=== PATIENT | female | born 1995 | race American Indian/Alaskan Native ===

== ENCOUNTER 2021-02-01 23:50 | Emergency (ER) | payer OTHER ==
--- NOTE | 2021-02-02 00:15 | Emergency Department Report ---
ED General Adult HPI - General Chief complaint: Chest Pain Stated complaint: CHEST PAINS Time Seen by Provider: 02/02/21 00:05 Source: patient Mode of arrival: Ambulatory Limitations: No Limitations - History of Present Illness Initial comments: Patient is a 25-year-old female who presents for chest pain intermittent fever for the past week. Patient states pain of 5/10 radiates to the lower back pain is exacerbated by movement. pt does endorse fever, and moderate, Cough, there is no wheezing no stridor. No history of asthma or bronchitis. Patient is not Covid vaccinated. - Related Data Previous Rx's Medication Instructions Recorded Last Taken Type Albuterol Mdi (or & Nicu Only) 2 puff IH QID PRN #8.5 gram 02/02/21 Unknown Rx [ProAir HFA Inhaler] Amoxicillin/Potassium Clav 1 each PO BID 7 Days #14 tablet 02/02/21 Unknown Rx [Augmentin 875-125 Tablet] Azithromycin 500 mg PO DAILY 5 Days #5 tablet 02/02/21 Unknown Rx dexAMETHasone [Decadron] 4 mg PO BID 5 Days #10 tablet 02/02/21 Unknown Rx Allergies Allergy/AdvReac Type Severity Reaction Status Date / Time No Known Allergies Allergy Unverified 02/01/21 23:54 ED Review of Systems ROS: Stated complaint: CHEST PAINS Other details as noted in HPI Constitutional: chills, fever, malaise Eyes: denies: eye pain, eye discharge, vision change ENT: congestion Respiratory: cough, SOB with exertion. denies: shortness of breath, wheezing Cardiovascular: chest pain. denies: palpitations Endocrine: no symptoms reported Gastrointestinal: denies: abdominal pain, nausea, vomiting, diarrhea Genitourinary: denies: urgency, dysuria, discharge Musculoskeletal: denies: back pain, joint swelling, arthralgia Skin: denies: rash, lesions Neurological: denies: headache, weakness, paresthesias Psychiatric: denies: anxiety, depression Hematological/Lymphatic: denies: easy bleeding, easy bruising ED Past Medical Hx - Past Medical History Previous Medical History?: Yes Additional medical history: bronchitis - Surgical History Past Surgical History?: No - Medications Home Medications: Home Medications Medication Instructions Recorded Confirmed Last Taken Type Albuterol Mdi (or & Nicu Only) 2 puff IH QID PRN #8.5 gram 02/02/21 Unknown Rx [ProAir HFA Inhaler] Amoxicillin/Potassium Clav 1 each PO BID 7 Days #14 tablet 02/02/21 Unknown Rx [Augmentin 875-125 Tablet] Azithromycin 500 mg PO DAILY 5 Days #5 tablet 02/02/21 Unknown Rx dexAMETHasone [Decadron] 4 mg PO BID 5 Days #10 tablet 02/02/21 Unknown Rx ED Physical Exam - General Limitations: No Limitations General appearance: alert, in no apparent distress - Head Head exam: Present: atraumatic, normocephalic - Eye Eye exam: Present: normal appearance, EOMI Pupils: Present: normal accommodation - ENT ENT exam: Present: normal orophraynx, mucous membranes moist, TM's normal bilaterally, normal external ear exam - Neck Neck exam: Present: normal inspection, full ROM. Absent: tenderness, l ymphadenopathy - Respiratory Respiratory exam: Present: chest wall tenderness (anterior chest wall pain to deep palpation). Absent: respiratory distress, wheezes, rales, rhonchi, stridor, decreased breath sounds - Cardiovascular Cardiovascular Exam: Present: regular rate, normal rhythm, normal heart sounds. Absent: systolic murmur, diastolic murmur, rubs, gallop - GI/Abdominal GI/Abdominal exam: Present: soft, normal bowel sounds. Absent: distended, tenderness, guarding, rebound, rigid, bruit, hernia - Rectal Rectal exam: Present: deferred - Extremities Exam Extremities exam: Present: normal inspection, full ROM, normal capillary refill - Back Exam Back exam: Present: normal inspection, full ROM. Absent: CVA tenderness (R), CVA tenderness (L) - Neurological Exam Neurological exam: Present: alert, oriented X3, CN II-XII intact, normal gait - Psychiatric Psychiatric exam: Present: normal affect, normal mood - Skin Skin exam: Present: warm, dry, intact, normal color. Absent: rash ED Course Vital Signs 02/01/21 23:55 Temperature 101.1 F H Pulse Rate 138 H Respiratory 18 Rate Blood Pressure 129/86 O2 Sat by Pulse 98 Oximetry ED Medical Decision Making - Lab Data Result diagrams: 02/02/21 00:38 02/02/21 00:38 Labs 02/02/21 02/02/21 02/02/21 00:38 00:38 00:38 WBC 10.5 RBC 3.43 L Hgb 10.2 Hct 30.1 L MCV 88 MCH 30 MCHC 34 RDW 13.9 Plt Count 394 Lymph % (Auto) 13.7 Garden % (Auto) 12.5 H Eos % (Auto) 1.2 Baso % (Auto) 0.7 Lymph # (Auto) 1.4 Garden # (Auto) 1.3 H Eos # (Auto) 0.1 Baso # (Auto) 0.1 Seg Neutrophils % 71.9 H Seg Neutrophils # 7.6 Sodium 138 Potassium 3.1 L Chloride 98.3 Carbon Dioxide 26 Anion Gap 17 BUN 8 Creatinine 0.7 Estimated GFR > 60 BUN/Creatinine Ratio 11 Glucose 88 Lactic Acid 0.90 Calcium 7.9 L Total Bilirubin 0.20 AST 15 ALT 18 Alkaline Phosphatase 65 Troponin T < 0.010 Total Protein 7.5 Albumin 3.0 L Albumin/Globulin Ratio 0.7 - EKG Data EKG shows normal: sinus rhythm, axis, intervals, ST-T waves Rate: tachycardia - EKG Data Interpretation: other (Left atrial enlargement , No ST Elevated ND, interp by ed attending) - Radiology Data Radiology results: report reviewed, image reviewed [facility] Physician: RASHEEDA ELIZABETH NP Date of Service: 02/02/21 Procedure(s): XR chest routine 2V Accession Number(s): [id number] cc: RASHEEDA ELIZABETH NP Fluoro Time In Minutes: CHEST 2 VIEWS INDICATION / CLINICAL INFORMATION: chest pain. FINDINGS: SUPPORT DEVICES: None. HEART / MEDIASTINUM: No significant abnormality. LUNGS / PLEURA: Prominent multifocal airspace pneumonia throughout the left lung. The right lung is grossly clear. No pleural effusion. Signer Name: Ty Perez MD Signed: 02/02/2021 12:40 AM Workstation Name: [id number] - Medical Decision Making Chest x-ray left upper and lower lobe pneumonia plan treat for same. As are improved medications given in ED. Patient will be DC'd to home with prescriptions. There is no shortness of breath at this time patient is amatory and unit from room to bathroom and back without increased shortness of breath there is no wheezing no stridor. Patient will quarantine as precaution for PUI. We will follow-up with primary care doctor in 2 to 3 days will call for appointment. Patient verbalized agreement and understanding with discharge plan will be DC'd home in stable condition at this time. Critical care attestation.: If time is entered above; I have spent that time in minutes in the direct care of this critically ill patient, excluding procedure time. ED Disposition Clinical Impression: CAP (community acquired pneumonia) Qualifiers: Laterality: left Lung location: unspecified part of lung Qualified Code(s): J18.9 - Pneumonia, unspecified organism Disposition: HOME / SELF CARE / HOMELESS Is pt being admited?: No Does the pt Need Aspirin: No Condition: Stable Instructions: Bacterial Pneumonia (ED), Community-Acquired Pneumonia, Adult, [id number] Additional Instructions: Take medications as directed, quarantine as directed for 7 to 10 days, follow-up with your primary care doctor in 2 to 3 days. Call them to set up appointment a nd advised that you are PUI. Return to emergency should symptoms worsen. Prescriptions: Amoxicillin/Potassium Clav [Augmentin 875-125 Tablet] 1 each PO BID 7 Days #14 tablet Azithromycin 500 mg PO DAILY 5 Days #5 tablet dexAMETHasone [Decadron] 4 mg PO BID 5 Days #10 tablet Albuterol Mdi (or & Nicu Only) [ProAir HFA Inhaler] 2 puff IH QID PRN #8.5 gram PRN Reason: Shortness Of Breath Referrals: KARAN PACHECO MD [Staff Physician] - 3-5 Days Forms: Work/School Release Form(ED) Time of Disposition: 02:50
[2021-02-02] MEDS ORDERED: SODIUM CHLORIDE 0.9% 1000 ML 1,000 ML IV ONE (00:18)
--- NOTE | 2021-02-02 00:44 | XRay Report ---
CHEST 2 VIEWS INDICATION / CLINICAL INFORMATION: chest pain. FINDINGS: SUPPORT DEVICES: None. HEART / MEDIASTINUM: No significant abnormality. LUNGS / PLEURA: Prominent multifocal airspace pneumonia throughout the left lung. The right lung is g rossly clear. No pleural effusion. Signer Name: Ty Perez MD Signed: 02/02/2021 12:40 AM Workstation Name: [id number]
[2021-02-02] MEDS ORDERED: cefTRIAXone/NS 2 GM/100 ML 2 GM/100 ML BAG IV ONE (00:58)
[2021-02-02] MEDS ORDERED: dexAMETHasone 20 MG/5 ML VIAL IV ONE (01:05)
[2021-02-02 01:10] LABS: Basophils # (Auto) 0.1 K/mm3 (0.0-0.1); Basophils % (Auto) 0.7 % (0.0-1.8); Eosinophils # (Auto) 0.1 K/mm3 (0.0-0.4); Eosinophils % (Auto) 1.2 % (0.0-4.3); Hematocrit 30.1 % (30.3-42.9); Hemoglobin 10.2 gm/dl (10.1-14.3); Lymphocytes # (Auto) 1.4 K/mm3 (1.2-5.4); Lymphocytes % (Auto) 13.7 % (13.4-35.0); Mean Corpuscular HGB Conc 34 % (30-34); Mean Corpuscular Volume 88 fl (79-97); Monocytes # (Auto) 1.3 K/mm3 (0.0-0.8); Monocytes % (Auto) 12.5 % (0.0-7.3); Platelet Count 394 K/mm3 (140-440); Red Blood Count 3.43 M/mm3 (3.65-5.03); Red Cell Distribution Width 13.9 % (13.2-15.2)
[2021-02-02 01:21] LABS: Alanine Aminotransferase 18 units/L (7-56); Blood Urea Nitrogen 8 mg/dL (7-17); Calcium 7.9 mg/dL (8.4-10.2); Hemolysis Index 3
[2021-02-02 01:29] LABS: BUN/Creatinine Ratio 11
[2021-02-02 03:26] VITALS: BP 123/80
--- NOTE | 2021-02-02 11:48 | Electrocardiograph Report ---
[facility] Test Date: 2021-02-02 Test Time: 00:01:34 Pat Name: MATTHEW VELASQUEZ Department: Room: Gender: F Manager Paid: MALICK : 1995 Requested By: TEE PEARL Order Number: [id number] Reading MD: Edwar Lim Measurements Intervals [place] Rate: 128 P: 79 KS: 119 QRS: 81 QRSD: 83 T: 42 QT: 331 QTc: 484 Interpretive Statements Sinus tachycardia Left atrial enlargement No previous ECG available for comparison Electronically Signed On 02-02-2021 11:48:29 EDT by Edwar Lim
== END 2021-02-02 03:22 | disposition home or self-care (01) ==
LOC: ED 23:50
DX: J18.8 Other pneumonia, unspecified organism (principal)
CPT/HCPCS: 36415; 71046; 80053; 82140; 84484; 85025; 87040; 93005; 96365; 96375; 99284; J0696; J1100; J7030

== ENCOUNTER 2021-02-15 15:49 | Inpatient (IN) | payer OTHER ==
--- NOTE | 2021-02-15 16:27 | Emergency Department Report ---
ED General Adult HPI - General Chief complaint: Upper Respiratory Infection Stated complaint: FLU SYMPTOMS Time Seen by Provider: 02/15/21 16:08 Source: patient Mode of arrival: Ambulatory Limitations: No Limitations - History of Present Illness Initial comments: Patient is a 25-year-old female presents emergency room complaints of a cough that began approximately 2 to 3 weeks ago. She has associated chest pain, shortness of breath, fever. She states her chest pain is exacerbated by coughing. She denies any pleuritic pain, vomiting, diarrhea, hemoptysis, leg swelling, calf pain. pt was seen in the ED on 02/02/2021 and was diagnosed with left sided pneumonia and given prescription for medication including augmentin, azithromycin, and dexamethasone. She states that she went back to urgent care today due to continued symptoms and was advised that she had fever and tachycardia and was referred to the emergency room. she was given ibuprofen and dexamethasone IM by urgent care today. Patient states that she had a rapid COVID-19 swab 2 to 3 weeks ago and states that it was negative. She states occasionally she does feel like her heart is racing. Past medical history of bronchitis. No allergies to medications. She is a smoker. - Related Data Home Medications Medication Instructions Recorded Confirmed Last Taken Tylenol 500 mg PO Q6H PRN 02/15/21 02/15/21 Unknown Previous Rx's Medication Instructions Recorded Last Taken Type Albuterol Mdi (or & Nicu Only) 2 puff IH QID PRN #8.5 gram 02/02/21 Unknown Rx [ProAir HFA Inhaler] Allergies Allergy/AdvReac Type Severity Reaction Status Date / Time No Known Allergies Allergy Verified 02/15/21 18:22 ED Review of Systems ROS: Stated complaint: FLU SYMPTOMS Other details as noted in HPI Comment: All other systems reviewed and negative ED Past Medical Hx - Past Medical History Hx Asthma: Yes Additional medical history: bronchitis - Surgical History Past Surgical History?: No - Medications Home Medications: Home Medications Medication Instructions Recorded Confirmed Last Taken Type Albuterol Mdi (or & Nicu Only) 2 puff IH QID PRN #8.5 gram 02/02/21 02/15/21 Unknown Rx [ProAir HFA Inhaler] Tylenol 500 mg PO Q6H PRN 02/15/21 02/15/21 Unknown History ED Physical Exam - General Limitations: No Limitations General appearance: alert, in no apparent distress - Head Head exam: Present: atraumatic, normocephalic - Eye Eye exam: Present: normal appearance - ENT ENT exam: Present: mucous membranes moist - Respiratory Respiratory exam: Present: normal lung sounds bilaterally. Absent: respiratory distress, wheezes, rales, rhonchi, stridor, chest wall tenderness, accessory muscle use, decreased breath sounds, prolonged expiratory - Cardiovascular Cardiovascular Exam: Present: normal rhythm, tachycardia, normal heart sounds. Absent: systolic murmur, diastolic murmur, rubs, gallop - Neurological Exam Neurological exam: Present: alert, oriented X3 - Psychiatric Psychiatric exam: Present: normal affect, normal mood - Skin Skin exam: Present: warm, dry, intact ED Course Vital Signs 02/15/21 02/15/21 02/15/21 16:00 18:17 18:20 Temperature 98.0 F 97.9 F Pulse Rate 111 H 94 H 95 H Respiratory 18 16 23 Rate Blood Pressure 133/79 Blood Pressure 115/78 [Left] O2 Sat by Pulse 99 100 Oximetry 02/15/21 02/15/21 02/15/21 18:26 19:04 19:20 Temperature 97.9 F Pulse Rate 94 H 92 H Respiratory 16 20 Rate Blood Pressure 115/78 Blood Pressure 145/92 [Left] O2 Sat by Pulse 100 100 100 Oximetry 02/15/21 02/15/21 20:00 21:00 Temperature Pulse Rate 90 85 Respiratory 22 Rate Blood Pressure 145/92 145/92 Blood Pressure [Left] O2 Sat by Pulse 100 98 Oximetry - Consultations Consultation #1: 02/15/21 19:47 attempted to admit patient to hospitalist, advised to admit to 9PM hospitalist 02/15/21 20:[address] Pacheco, lump maker regarding patient presentation results, he advised to admit to hospitalist service, he will consult on patient, he believes could be staph pneumonia, advised to order cefepime and vancomycin, he states he will likely perform bronchoscopy on 02/17/21 02/15/21 21:42 spoke to [facility] [place] with Dr. Qureshi, hospitalist, will accept and resume care of patient, will admit to hospitalist service ED Medical Decision Making - Lab Data Result diagrams: 02/15/21 16:34 02/15/21 16:34 Lab Results 02/15/21 02/15/21 02/15/21 Range/Units 16:34 16:34 16:34 WBC 8.5 (4.5-11.0) K/mm3 RBC 3.88 (3.65-5.03) M/mm3 Hgb 11.1 (10.1-14.3) gm/dl Hct 34.2 (30.3-42.9) % MCV 88 (79-97) fl MCH 29 (28-32) pg MCHC 33 (30-34) % RDW 15.5 H (13.2-15.2) % Plt Count 328 (140-440) K/mm3 Add Manual Diff Complete Total Counted 100 Seg Neutrophils % Auto Emissions Technician Seg Neuts % (Manual) 92.0 H (40.0-70.0) % Lymphocytes % (Manual) 5.0 L (13.4-35.0) % Monocytes % (Manual) 2.0 (0.0-7.3) % Eosinophils % (Manual) 1.0 (0.0-4.3) % Nucleated RBC % Not Reportable Seg Neutrophils # Man 7.8 H (1.8-7.7) K/mm3 Band Neutrophils # 0.0 K/mm3 Lymphocytes # (Manual) 0.4 L (1.2-5.4) K/mm3 Abs React Lymphs (Man) 0.0 K/mm3 Monocytes # (Manual) 0.2 (0.0-0.8) K/mm3 Eosinophils # (Manual) 0.1 (0.0-0.4) K/mm3 Basophils # (Manual) 0.0 (0.0-0.1) K/mm3 Metamyelocytes # 0.0 K/mm3 Myelocytes # 0.0 K/mm3 Promyelocytes # 0.0 K/mm3 Blast Cells # 0.0 K/mm3 WBC Morphology Not Reportable Hypersegmented Neuts Not Reportable Hyposegmented Neuts Not Reportable Hypogranular Neuts Not Reportable Smudge Cells Not Reportable Toxic Granulation Not Reportable Toxic Vacuolation Not Reportable Dohle Bodies Not Reportable Pelger-Huet Anomaly Not Reportable Edy Rods Not Reportable Platelet Estimate Consistent w auto Clumped Platelets Not Reportable Plt Clumps, EDTA Not Reportable Large Platelets Not Reportable Giant Platelets Not Reportable Platelet Satelliting Not Reportable Plt Morphology Comment Not Reportable RBC Morphology Not Reportable Dimorphic RBCs Not Reportable Polychromasia Not Reportable Hypochromasia Not Reportable Poikilocytosis Not Reportable Anisocytosis 1+ Microcytosis Not Reportable Macrocytosis Not Reportable Spherocytes Not Reportable Pappenheimer Bodies Not Reportable Sickle Cells Not Reportable Target Cells Not Reportable Tear Drop Cells Not Reportable Ovalocytes Not Reportable Helmet Cells Not Reportable [place] Bodies Not Reportable [place] Rings Not Reportable [place] Cells Not Reportable Bite Cells Not Reportable Crenated Cell Not Reportable Elliptocytes Not Reportable Acanthocytes (Spur) Not Reportable Rouleaux Not Reportable Hemoglobin C Crystals Not Reportable Schistocytes Not Reportable Malaria parasites Not Reportable Boris Bodies Not Reportable Hem Pathologist Commnt No D-Dimer 419.23 H (0-234) ng/mlDDU Sodium 137 (137-145) mmol/L Potassium 4.0 (3.6-5.0) mmol/L Chloride 101.1 (98-107) mmol/L Carbon Dioxide 25 (22-30) mmol/L Anion Gap 15 mmol/L BUN 12 (7-17) mg/dL Creatinine 0.6 (0.6-1.2) mg/dL Estimated GFR > 60 ml/min BUN/Creatinine Ratio 20 % Glucose 150 H (65-100) mg/dL Lactic Acid (0.7-2.0) mmol/L Calcium 8.7 (8.4-10.2) mg/dL Magnesium 1.40 L (1.7-2.3) mg/dL Total Bilirubin 0.20 (0.1-1.2) mg/dL AST 32 (5-40) units/L ALT 55 (7-56) units/L Alkaline Phosphatase 83 (35-129) units/L Total Creatine Kinase 147 H (30-135) units/L Troponin T 0.058 H (0.00-0.029) ng/mL NT-Pro-B Natriuret Pep 27.57 (0-450) pg/mL Total Protein 7.9 (6.3-8.2) g/dL Albumin 3.3 L (3.9-5) g/dL Albumin/Globulin Ratio 0.7 % TSH (0.270-4.200) mlU/mL HCG, Qual (Negative) 02/15/21 02/15/21 02/15/21 Range/Units 16:34 16:34 19:10 WBC (4.5-11.0) K/mm3 RBC (3.65-5.03) M/mm3 Hgb (10.1-14.3) gm/dl Hct (30.3-42.9) % MCV (79-97) fl MCH (28-32) pg MCHC (30-34) % RDW (13.2-15.2) % Plt Count (140-440) K/mm3 Add Manual Diff Total Counted Seg Neutrophils % Seg Neuts % (Manual) (40.0-70.0) % Lymphocytes % (Manual) (13.4-35.0) % Monocytes % (Manual) (0.0-7.3) % Eosinophils % (Manual) (0.0-4.3) % Nucleated RBC % Seg Neutrophils # Man (1.8-7.7) K/mm3 Band Neutrophils # K/mm3 Lymphocytes # (Manual) (1.2-5.4) K/mm3 Abs React Lymphs (Man) K/mm3 Monocytes # (Manual) (0.0-0.8) K/mm3 Eosinophils # (Manual) (0.0-0.4) K/mm3 Basophils # (Manual) (0.0-0.1) K/mm3 Metamyelocytes # K/mm3 Myelocytes # K/mm3 Promyelocytes # K/mm3 Blast Cells # K/mm3 WBC Morphology Hypersegmented Neuts Hyposegmented Neuts Hypogranular Neuts Smudge Cells Toxic Granulation Toxic Vacuolation Dohle Bodies Pelger-Huet Anomaly Edy Rods Platelet Estimate Clumped Platelets Plt Clumps, EDTA Large Platelets Giant Platelets Platelet Satelliting Plt Morphology Comment RBC Morphology Dimorphic RBCs Polychromasia Hypochromasia Poikilocytosis Anisocytosis Microcytosis Macrocytosis Spherocytes Pappenheimer Bodies Sickle Cells Target Cells Tear Drop Cells Ovalocytes Helmet Cells [place] Bodies [place] Rings [place] Cells Bite Cells Crenated Cell Elliptocytes Acanthocytes (Spur) Rouleaux Hemoglobin C Crystals Schistocytes Malaria parasites Boris Bodies Hem Pathologist Commnt D-Dimer (0-234) ng/mlDDU Sodium (137-145) mmol/L Potassium (3.6-5.0) mmol/L Chloride (98-107) mmol/L Carbon Dioxide (22-30) mmol/L Anion Gap mmol/L BUN (7-17) mg/dL Creatinine (0.6-1.2) mg/dL Estimated GFR ml/min BUN/Creatinine Ratio % Glucose (65-100) mg/dL Lactic Acid 1.20 (0.7-2.0) mmol/L Calcium (8.4-10.2) mg/dL Magnesium (1.7-2.3) mg/dL Total Bilirubin (0.1-1.2) mg/dL AST (5-40) units/L ALT (7-56) units/L Alkaline Phosphatase (35-129) units/L Total Creatine Kinase (30-135) units/L Troponin T (0.00-0.029) ng/mL NT-Pro-B Natriuret Pep (0-450) pg/mL Total Protein (6.3-8.2) g/dL Albumin (3.9-5) g/dL Albumin/Globulin Ratio % TSH 0.195 L (0.270-4.200) mlU/mL HCG, Qual Negative (Negative) 02/15/21 Range/Units 19:10 WBC (4.5-11.0) K/mm3 RBC (3.65-5.03) M/mm3 Hgb (10.1-14.3) gm/dl Hct (30.3-42.9) % MCV (79-97) fl MCH (28-32) pg MCHC (30-34) % RDW (13.2-15.2) % Plt Count (140-440) K/mm3 Add Manual Diff Total Counted Seg Neutrophils % Seg Neuts % (Manual) (40.0-70.0) % Lymphocytes % (Manual) (13.4-35.0) % Monocytes % (Manual) (0.0-7.3) % Eosinophils % (Manual) (0.0-4.3) % Nucleated RBC % Seg Neutrophils # Man (1.8-7.7) K/mm3 Band Neutrophils # K/mm3 Lymphocytes # (Manual) (1.2-5.4) K/mm3 Abs React Lymphs (Man) K/mm3 Monocytes # (Manual) (0.0-0.8) K/mm3 Eosinophils # (Manual) (0.0-0.4) K/mm3 Basophils # (Manual) (0.0-0.1) K/mm3 Metamyelocytes # K/mm3 Myelocytes # K/mm3 Promyelocytes # K/mm3 Blast Cells # K/mm3 WBC Morphology Hypersegmented Neuts Hyposegmented Neuts Hypogranular Neuts Smudge Cells Toxic Granulation Toxic Vacuolation Dohle Bodies Pelger-Huet Anomaly Edy Rods Platelet Estimate Clumped Platelets Plt Clumps, EDTA Large Platelets Giant Platelets Platelet Satelliting Plt Morphology Comment RBC Morphology Dimorphic RBCs Polychromasia Hypochromasia Poikilocytosis Anisocytosis Microcytosis Macrocytosis Spherocytes Pappenheimer Bodies Sickle Cells Target Cells Tear Drop Cells Ovalocytes Helmet Cells Ber[place] Bodies [place] Rings [place] Cells Bite Cells Crenated Cell Elliptocytes Acanthocytes (Spur) Rouleaux Hemoglobin C Crystals Schistocytes Malaria parasites Boris Bodies Hem Pathologist Commnt D-Dimer (0-234) ng/mlDDU Sodium (137-145) mmol/L Potassium (3.6-5.0) mmol/L Chloride (98-107) mmol/L Carbon Dioxide (22-30) mmol/L Anion Gap mmol/L BUN (7-17) mg/dL Creatinine (0.6-1.2) mg/dL Estimated GFR ml/min BUN/Creatinine Ratio % Glucose (65-100) mg/dL Lactic Acid (0.7-2.0) mmol/L Calcium (8.4-10.2) mg/dL Magnesium (1.7-2.3) mg/dL Total Bilirubin (0.1-1.2) mg/dL AST (5-40) units/L ALT (7-56) units/L Alkaline Phosphatase (35-129) units/L Total Creatine Kinase (30-135) units/L Troponin T < 0.010 (0.00-0.029) ng/mL NT-Pro-B Natriuret Pep (0-450) pg/mL Total Protein (6.3-8.2) g/dL Albumin (3.9-5) g/dL Albumin/Globulin Ratio % TSH (0.270-4.200) mlU/mL HCG, Qual (Negative) Vital Signs 1002/15/21 02/15/21 16:00 18:17 18:20 Temperature 98.0 F 97.9 F Pulse Rate 111 H 94 H 95 H Respiratory 18 16 23 Rate Blood Pressure 133/79 Blood Pressure 115/78 [Left] O2 Sat by Pulse 99 100 Oximetry 02/15/21 02/15/21 02/15/21 18:26 19:04 19:20 Temperature 97.9 F Pulse Rate 94 H 92 H Respiratory 16 20 Rate Blood Pressure 115/78 Blood Pressure 145/92 [Left] O2 Sat by Pulse 100 100 100 Oximetry 02/15/21 02/15/21 20:00 21:00 Temperature Pulse Rate 90 85 Respiratory 22 Rate Blood Pressure 145/92 145/92 Blood Pressure [Left] O2 Sat by Pulse 100 98 Oximetry - EKG Data EKG shows normal: sinus rhythm, axis Rate: tachycardia (100 bpm) - EKG Data 02/15/21 16:51 Prolonged QT interval 496 Nonspecific T wave inversion in V1, V2, V3 ST elevation from normal early repolarization No STEMI - Radiology Data Radiology results: report reviewed Ordering Physician: GIOVANNA CLAIRE Date of Service: 02/15/21 Procedure(s): XR chest routine 2V Accession Number(s): [id number] cc: GIOVANNA CLAIRE Fluoro Time In Minutes: CHEST 2 VIEWS INDICATION: CP, SOB. COMPARISON: 02/03/2020 FINDINGS: Support devices: None. Heart: Within normal limits. Lungs/pleura: Patchy infiltrate in the left lung has decreased by 50-75%. The right lung remains clear. No pleural effusion or pneumothorax. Additional findings: None. IMPRESSION: Improvement in the left lung pneumonia since 02/03/2020. Signer Name: Michael Mccray Jr, MD Signed: 02/15/2021 7:02 PM Workstation Name: [id number] Transcribed By: TTR Dictated By: MICHAEL MCCRAY JR, MD Electronically Authenticated By: MICHAEL MCCRAY JR, MD Signed Date/Time: 02/15/211901 DD/ 00 TD/TT: Ordering Physician: GIOVANNA CLAIRE Date of Service: 02/15/21 Procedure(s): CT angio chest Accession Number(s): [id number] cc: GIOVANNA CLAIRE CTA CHEST WITH CONTRAST INDICATION : cp, sob, cough, fever, (+) d-dimer, tachycardia. TECHNIQUE: Axial imaging performed through the chest, with contrast bolus efrain ing set to maximize opacification of the pulmonary arteries. Sagittal and coronal reformatted image s. 3-plane MIP reformatted images were obtained. All CT scans at this location are performed using CT dose reduction for ALARA by means of automated exposure control. 100 mL of intravenous contrast administered. COMPARISON: None FINDINGS: Bolus: Contrast bolus timing is adequate. PTE: No filling defect is present to suggest PTE. Mediastinum: Heart size is borderline. There is trace pericardial fluid. Borderline to mildly enlarged lymph nodes are identified at the left hilum and AP window. Lungs: Both lungs are abnormal. There is an irregular cavitating masslike lesion in the left apical region with a thick peripheral wall measuring up to 4.3 x 4.9 cm in axial plane. There is ext ensive peribronchial nodularity throughout the left upper lobe extending all the way to the lingula. There is also a smaller but similar appearing cavitating lesion in the right suprahilar region measuring 1.5 cm in diameter. No pleural effusion or pneumothorax. Bones: Degenerative changes in the spine with nothing acute. Upper abdomen: Limited imaging of the upper abdomen shows nothing acute. IMPRESSION: No evidence for pulmonary embolus. Abnormal lungs. There is an approximate 5 cm cavitary lesion at the left lung apex with extensive infiltration throughout the remainder of the left upper lobe. A smaller 1.5 cm cavitary lesion is identified in the right suprahilar region. I suspect this is an inflammatory process. Tuberculosis should be considered. Fungal infection could also be considered. Cavitating neoplasm with lymphangitic spread could also be considered but is thought less likely. Please correlate with the patient's clinical presentation. Signer Name: Michael Mccray Jr, MD Signed: 02/15/2021 7:33 PM Workstation Name: [id number] Transcribed By: TTR Dictated By: MICHAEL MCCRAY JR, MD Electronically Authenticated By: MICHAEL MCCRAY JR, MD Signed Date/Time: 02/15/211932 DD/ 28 TD/TT: - Medical Decision Making Patient is a 25-year-old female presents emergency room complaints of a cough that began approximately 2 to 3 weeks ago. She has associated chest pain, shortness of breath, fever. She states her chest pain is exacerbated by coughing. She denies any pleuritic pain, vomiting, diarrhea, hemoptysis, leg swelling, calf pain. pt was seen in the ED on 02/02/2021 and was diagnosed with left sided pneumonia and given prescription for medication including augmentin, azithromycin, and dexamethasone. She states that she went back to urgent care today due to continued symptoms and was advised that she had fever and tach ycardia and was referred to the emergency room. she was given ibuprofen and dexamethasone IM by urgent care today. Patient states that she had a rapid COVID-19 swab 2 to 3 weeks ago and states that it was negative. She states occasionally she does feel like her heart is racing. Past medical history of bronchitis. No allergies to medications. She is a smoker. Initial vitals with tachycardia which improved upon repeat. EKG with nonspecific T wave inversion V1, V2, V3, normal early repolarization, prolonged QT. Lab significant for initially elevated troponin, on repeat troponin is normal. D-dimer is elevated. Hypomagnesium, repleted with IV mag. TSH is low. Chest x-ray:Improvement in the left lung pneumonia since 02/03/2020. CT angio chest No evidence for pulmonary embolus. Abnormal lungs. There is an approximate 5 cm cavitary lesion at the left lung apex with extensive infiltration throughout the remainder of the left upper lobe. A smaller 1.5 cm cavitary lesion is identified in the right suprahilar region. I suspect this is an inflammatory process. Tuberculosis should be considered. Fungal infection could also be considered. Cavitating neoplasm with lymphangitic spread could also be considered but is thought less likely. Please correlate with the patient's clinical presentation. Discussed case with Dr. Garcia, ER attending who recommended admission.Spoke to Dr. Pacheco, lump maker regarding patient presentation results, he advised to admit to hospitalist service, he will consult on patient, he believes could be staph pneumonia, advised to order cefepime and vancomycin, he states he will likely perform bronchoscopy on 02/17/21. \ Dr. Qureshi, hospitalist will accept and resume care of patient, will admit to hospital service. discussed results with patient and she is agreeable with admission. Critical care attestation.: If time is entered above; I have spent that time in minutes in the direct care of this critically ill patient, excluding procedure time. ED Disposition Clinical Impression: Cavitary lesion of lung, Hypomagnesemia, Elevated troponin, Low TSH level Disposition: ADMITTED INPATIENT Is pt being admited?: Yes Does the pt Need Aspirin: No Condition: Fair Referrals: PRIMARY CARE, [Primary Care Provider] - 3-5 Days Time of Disposition: 21:43 Print Language: J[place]
[2021-02-15] MEDS ORDERED: SODIUM CHLORIDE 0.9% 1000 ML 1,000 ML IV ONE (16:43)
[2021-02-15 17:11] LABS: Hematocrit 34.2 % (30.3-42.9); Hemoglobin 11.1 gm/dl (10.1-14.3); Mean Corpuscular HGB Conc 33 % (30-34); Mean Corpuscular Volume 88 fl (79-97); Platelet Count 328 K/mm3 (140-440); Red Blood Count 3.88 M/mm3 (3.65-5.03); Red Cell Distribution Width 15.5 % (13.2-15.2)
[2021-02-15 17:33] LABS: Alanine Aminotransferase 55 units/L (7-56); Albumin 3.3 g/dL (3.9-5); Blood Urea Nitrogen 12 mg/dL (7-17); Calcium 8.7 mg/dL (8.4-10.2); Hemolysis Index 5
[2021-02-15 17:41] LABS: BUN/Creatinine Ratio 20
[2021-02-15] MEDS ORDERED: MAGNESIUM SULFATE 2 GM/50 ML BAG IV ONE (17:41)
[2021-02-15 18:21] LABS: Total Cells Counted 100
[2021-02-15 18:22] LABS: Anisocytosis 1+; Platelet Estimate Consistent w Auto
--- NOTE | 2021-02-15 19:06 | XRay Report ---
CHEST 2 VIEWS INDICATION: CP, SOB. COMPARISON: 02/03/2020 FINDINGS: Support devices: None. Heart: Within normal limits. Lungs/pleura: Patchy infiltrate in the left lung has decreased by 50-75%. The right lung remains rosalio r. No pleural effusion or pneumothorax. Additional findings: None. IMPRESSION: Improvement in the left lung pneumonia since 02/03/2020. Signer Name: Michael Mccray Jr, MD Signed: 02/15/2021 7:02 PM Workstation Name: [id number]
--- NOTE | 2021-02-15 19:37 | Cat Scan Report ---
CTA CHEST WITH CONTRAST INDICATION : cp, sob, cough, fever, (+) d-dimer, tachycardia. TECHNIQUE: Axial imaging performed through the chest, with contrast bolus timing set to maximize opa cification of the pulmonary arteries. Sagittal and coronal reformatted images. 3-plane MIP reformatte d images were obtained. All CT scans at this location are performed using CT dose reduction for ALAR A by means of automated exposure control. 100 mL of intravenous contrast administered. COMPARISON: None FINDINGS: Bolus: Contrast bolus timing is adequate. PTE: No filling defect is present to suggest PTE. Mediastinum: Heart size is borderline. There is trace pericardial fluid. Borderline to mildly enlarg ed lymph nodes are identified at the left hilum and AP window. Lungs: Both lungs are abnormal. There is an irregular cavitating masslike lesion in the left apical region with a thick peripheral wall measuring up to 4.3 x 4.9 cm in axial plane. There is extensive p eribronchial nodularity throughout the left upper lobe extending all the way to the lingula. There is also a smaller but similar appearing cavitating lesion in the right suprahilar region measuring 1.5 cm in diameter. No pleural effusion or pneumothorax. Bones: Degenerative changes in the spine with nothing acute. Upper abdomen: Limited imaging of the upper abdomen shows nothing acute. IMPRESSION: No evidence for pulmonary embolus. Abnormal lungs. There is an approximate 5 cm cavitary lesion at the left lung apex with extensive inf iltration throughout the remainder of the left upper lobe. A smaller 1.5 cm cavitary lesion is identi fied in the right suprahilar region. I suspect this is an inflammatory process. Tuberculosis should b e considered. Fungal infection could also be considered. Cavitating neoplasm with lymphangitic spread could also be considered but is thought less likely. Please correlate with the patient's clinical pr esentation. Signer Name: Michael Mccray Jr, MD Signed: 02/15/2021 7:33 PM Workstation Name: [id number]
[2021-02-15] MEDS ORDERED: CEFEPIME/NS 2 GM/100 ML 2 GM/100 ML BAG IV ONE (20:13)
[2021-02-15] MEDS ORDERED: VANCOMYCIN PHARMACY TO DOSE IV SCH (21:00)
[2021-02-15] MEDS ORDERED: VANCOMYCIN 1,250 MG in SODIUM CHLORIDE 0.9% 250ML 250 ML IV ONE (21:00)
[2021-02-15] MEDS ORDERED: NALOXONE 0.4 MG/1 ML INJ IV PRN (21:59)
[2021-02-15] MEDS ORDERED: ALUM-MAG HYDROXIDE-SIMETHICONE 200-200-20MG/5ML ORAL LIQD 30 ML PO PRN (21:59)
[2021-02-15] MEDS ORDERED: MORPHINE 4 MG/1 ML INJ IV PRN (21:59)
[2021-02-15] MEDS ORDERED: SENNOSIDES 8.6 MG TAB PO PRN (21:59)
[2021-02-15] MEDS ORDERED: METOCLOPRAMIDE 10 MG/2 ML INJ IV PRN (21:59)
[2021-02-15] MEDS ORDERED: ALBUTEROL 2.5 MG/3 ML NEBU IH PRN (21:59)
[2021-02-15] MEDS ORDERED: MAGNESIUM HYDROXIDE (MOM) ORAL LIQD UDC PO PRN (21:59)
[2021-02-15] MEDS ORDERED: MORPHINE 2 MG/1 ML INJ IV PRN (21:59)
[2021-02-15] MEDS ORDERED: ACETAMINOPHEN 325 MG TAB PO PRN (21:59)
[2021-02-15] MEDS ORDERED: ONDANSETRON 4 MG/2 ML INJ IV PRN (21:59)
[2021-02-15] MEDS ORDERED: oxyCODONE /ACETAMINOPHEN 5-325MG TAB PO PRN (21:59)
[2021-02-15] MEDS ORDERED: FAMOTIDINE 20 MG/2 ML INJ IV SCH (22:00)
[2021-02-15] MEDS ORDERED: HEPARIN 5,000 UNIT/1 ML VIAL SUB-Q SCH (22:00)
--- NOTE | 2021-02-15 22:07 | History and Physical Report ---
History of Present Illness Date of examination: 02/16/21 Date of admission: 02/15/21 21:43 Chief complaint: Shortness of breath Chest pain History of present illness: This is a 25-year-old female seen in ED at bedside. She presents to emergency room complaints of a cough that began approximately 2 to 3 weeks ago. She has associated chest pain, shortness of breath, fever. She states her chest pain is exacerbated and worsened by coughing. She denies any pleuritic pain, vomiting, diarrhea, hemoptysis, leg swelling, calf pain. Per ED record, patient was seen in the ED on 02/02/2021 and was diagnosed with left sided pneumonia and was given prescription for antibiotic. She states that she went back to urgent care today due to continued symptoms and was advised that she had fever and tachycardia and was referred to the emergency room. Patient admits tobacco use but she has been past medical history of bronchitis. CT a of the chest with contrast is negative for pulmonary embolus. There is a 5 cm cavitary lesion at the left lung apex with extensive infiltration throughout the remainder of the left upper lobe and a similar 1.5 cm cavitation lesion in the right suprahilar region per ED per radiologist report tuberculosis/fungal infection likely etiology. Past History Past Medical History: COPD Past Surgical History: No surgical history Social history: smoking, full code. denies: prescription drug abuse, IV drug use Family history: no significant family history Medications and Allergies Allergies Allergy/AdvReac Type Severity Reaction Status Date / Time No Known Allergies Allergy Verified 02/15/21 18:22 Home Medications Medication Instructions Recorded Confirmed Last Taken Type Albuterol Mdi (or & Nicu Only) 2 puff IH QID PRN #8.5 gram 02/02/21 02/15/21 Unknown Rx [ProAir HFA Inhaler] Tylenol 500 mg PO Q6H PRN 02/15/21 02/15/21 Unknown History Active Meds: Active Medications Acetaminophen (Acetaminophen 325 Mg Tab) 650 mg PO Q4H PRN PRN Reason: Pain MILD(1-3)/Fever >100.5/TRIVEDI Al Hydrox/Mg Hydrox/Simethicone (Alum-Mag Hydroxide-Simethicone [id number]/5ml Oral Liqd 30 Ml) 30 ml PO Q4H PRN PRN Reason: Indigestion Albuterol (Albuterol 2.5 Mg/3 Ml Nebu) 2.5 mg IH Q4HRT PRN PRN Reason: Shortness Of Breath Famotidine (Famotidine 20 Mg/2 Ml Inj) 20 mg IV BID KENDELL Famotidine (Famotidine 20 Mg/2 Ml Inj) 10 mg IV BID [facility] Heparin Sodium (Porcine) (Heparin 5,000 Unit/1 Ml Vial) 5,000 unit SUB-Q Q12HR [facility] Vancomycin HCl 1,250 mg/ (Sodium Chloride) 275 mls @ 166.667 mls/hr IV ONCE ONE Stop: 02/15/21 22:38 Last Admin: 02/15/21 21:33 Dose: 166.667 mls/hr Documented by: Vancomycin HCl (Vancomycin/Ns 1 Gm/250 Ml) 1 gm in 250 mls @ 166.667 mls/hr IV Q12H [facility] Sodium Chloride (Nacl 0.9% 1000 Ml) 1,000 mls @ 42 mls/hr IV DIRECT KENDELL Cefepime HCl (Cefepime/Ns 2 Gm/100 Ml) 2 gm in 100 mls @ 200 mls/hr IV Q12H [facility]; Protocol Magnesium Hydroxide (Magnesium Hydroxide (Mom) Oral Liqd Udc) 30 ml PO Q4H PRN PRN Reason: Constipation Metoclopramide HCl (Metoclopramide 10 Mg/2 Ml Inj) 10 mg IV Q6H PRN PRN Reason: Nausea And Vomiting Morphine Sulfate (Morphine 2 Mg/1 Ml Inj) 2 mg IV Q4H PRN PRN Reason: Pain, Moderate (4-6) Morphine Sulfate (Morphine 4 Mg/1 Ml Inj) 4 mg IV Q4H PRN PRN Reason: Pain , Severe (7-10) Naloxone HCl (Naloxone 0.4 Mg/1 Ml Inj) 0.1 mg IV Q2MIN PRN PRN Reason: Res Rate </= 8 or 02 SAT < 92% Ondansetron HCl (Ondansetron 4 Mg/2 Ml Inj) 4 mg IV Q8H PRN PRN Reason: Nausea And Vomiting Oxycodone/Acetaminophen (Oxycodone /Acetaminophen 5-325mg Tab) 1 tab PO Q6H PRN PRN Reason: Pain, Moderate (4-6) Senna (Sennosides 8.6 Mg Tab) 8.6 mg PO Q12HR PRN PRN Reason: Constipation Sodium Chloride (Sodium Chloride 0.9% 10 Ml Flush Syringe) 10 ml IV BID KENDELL Review of Systems Constitutional: fatigue, weakness Ears, nose, mouth and throat: no epistaxis, no bleeding gums Cardiovascular: chest pain, shortness of breath Respiratory: shortness of breath, congestion, wheezing Gastrointestinal: no BRBPR, no melena Rectal: no itching, no hemorrhoids Musculoskeletal: no neck pain Integumentary: no rash, no pruritis, no redness Psychiatric: anxiety Hematologic/Lymphatic: no easy bruising, no easy bleeding, no lymphadenopathy, no lymphedema Exam - Constitutional Vitals: Temp Pulse Resp BP Pulse Ox 97.9 F 85 22 145/92 98 02/15/21 19:20 02/15/21 21:00 02/15/21 21:00 02/15/21 21:00 02/15/21 21:00 General appearance: Present: mild distress, well-nourished - EENT Eyes: Present: PERRL ENT: hearing intact, clear oral mucosa - Neck Neck: Present: supple, normal ROM - Respiratory Respiratory effort: normal Respiratory: bilateral: CTA - Cardiovascular Heart Sounds: Present: S1 & S2. Absent: rub, click - Extremities Extremities: pulses symmetrical, No edema Peripheral Pulses: within normal limits - Abdominal General gastrointestinal: Present: soft, non-tender, non-distended, normal bowel sounds Female genitourinary: Present: normal - Integumentary Integumentary: Present: clear, warm, dry - Musculoskeletal Musculoskeletal: strength equal bilaterally - Psychiatric Psychiatric: appropriate mood/affect, intact judgment & insight, cooperative - Neurologic Neurologic: CNII-XII intact, moves all extremities - Allied Health Allied health notes reviewed: nursing HEART Score - HEART Score Troponin: Troponin T < 0.010 ng/mL (0.00-0.029) 02/15/21 19:10 Results - Labs CBC & Chem 7: 02/16/21 04:54 02/16/21 04:54 Labs: Abnormal lab results 02/15/21 02/15/21 02/15/21 Range/Units 16:34 16:34 16:34 RDW 15.5 H (13.2-15.2) % Seg Neuts % (Manual) 92.0 H (40.0-70.0) % Lymphocytes % (Manual) 5.0 L (13.4-35.0) % Seg Neutrophils # Man 7.8 H (1.8-7.7) K/mm3 Lymphocytes # (Manual) 0.4 L (1.2-5.4) K/mm3 D-Dimer 419.23 H (0-234) ng/mlDDU Glucose 150 H (65-100) mg/dL Magnesium 1.40 L (1.7-2.3) mg/dL Total Creatine Kinase 147 H (30-135) units/L Troponin T 0.058 H (0.00-0.029) ng/mL Albumin 3.3 L (3.9-5) g/dL TSH (0.270-4.200) mlU/mL 02/15/21 Range/Units 16:34 RDW (13.2-15.2) % Seg Neuts % (Manual) (40.0-70.0) % Lymphocytes % (Manual) (13.4-35.0) % Seg Neutrophils # Man (1.8-7.7) K/mm3 Lymphocytes # (Manual) (1.2-5.4) K/mm3 D-Dimer (0-234) ng/mlDDU Glucose (65-100) mg/dL Magnesium (1.7-2.3) mg/dL Total Creatine Kinase (30-135) units/L Troponin T (0.00-0.029) ng/mL Albumin (3.9-5) g/dL TSH 0.195 L (0.270-4.200) mlU/mL Assessment and Plan - Patient Problems (1) Cavitary lesion of lung Current Visit: Yes Status: Acute Plan to address problem: Retail Service Specialist Dr. Pacheco has been consulted Patient will be n.p.o. after midnight todayfor likely bronchoscopy tomorrow Per ED reportDr. Pacheco plans to do patient bronchoscopy tomorrow (2) Elevated troponin Current Visit: Yes Status: Acute Plan to address problem: Has resolved (3) Hypomagnesemia Current Visit: Yes Status: Acute Plan to address problem: Replaced Monitor electrolytes and replace if needed (4) CAP (community acquired pneumonia) Current Visit: No Status: Acute Plan to address problem: Started on vancomycin and cefepime Retail Service Specialist Dr Pacheco has been consulted (5) Low TSH level Current Visit: Yes Status: Acute Plan to address problem: Check T4 and T3 (6) D-dimer, elevated Current Visit: Yes Status: Acute Plan to address problem: CTA of the chest negative for pulmonary embolus (7) DVT prophylaxis Current Visit: Yes Status: Acute Plan to address problem: Subcutaneous Lovenox
[2021-02-15] MEDS: FAMOTIDINE 20 MG/2 ML INJ IV SCH (22:24)
[2021-02-16 06:19] LABS: Basophils % (Auto) 0.2 % (0.0-1.8); Hematocrit 32.8 % (30.3-42.9); Lymphocytes % (Auto) 8.6 % (13.4-35.0); Mean Corpuscular HGB Conc 31 % (30-34); Mean Corpuscular Volume 89 fl (79-97); Monocytes # (Auto) 1.3 K/mm3 (0.0-0.8); Monocytes % (Auto) 11.2 % (0.0-7.3); Platelet Count 319 K/mm3 (140-440); Red Blood Count 3.68 M/mm3 (3.65-5.03); Red Cell Distribution Width 15.8 % (13.2-15.2)
[2021-02-16 06:50] LABS: Alanine Aminotransferase 46 units/L (7-56); Albumin 3.2 g/dL (3.9-5); Blood Urea Nitrogen 8 mg/dL (7-17); Calcium 8.8 mg/dL (8.4-10.2); Hemolysis Index 3
[2021-02-16 06:51] LABS: BUN/Creatinine Ratio 16
[2021-02-16] MEDS: CEFEPIME/NS 2 GM/100 ML 2 GM/100 ML BAG IV SCH ×2 (10:19→22:42)
[2021-02-16] MEDS: FAMOTIDINE 20 MG/2 ML INJ IV SCH ×2 (10:26→22:43)
[2021-02-16] MEDS: VANCOMYCIN/NS 1 GM/250 ML 1 GM/250 ML BAG IV SCH ×2 (10:55→18:12)
--- NOTE | 2021-02-16 11:06 | Electrocardiograph Report ---
[facility] Test Date: 2021-02-15 Test Time: 16:39:51 Pat Name: MATTHEW VELASQUEZ Department: Room: A482 1 Gender: F [employer] In[employer]: ROGERS : 1995 Requested By: NELLA JAMISON Order Number: [id number] Reading MD: Salomon Santos Measurements Intervals [place] Rate: 100 P: 77 OR: 112 QRS: 84 QRSD: 93 T: 78 QT: 384 QTc: 496 Interpretive Statements Sinus tachycardia Abnrm T, consider ischemia, anterolateral lds ST elev, probable normal early repol pattern Prolonged QT interval Compared to ECG 02/02/2021 00:01:34 ST (T wave) deviation now present Prolonged QT interval now present Rate is slower,early repolarization changes noted. Electronically Signed On 02-16-2021 11:05:33 EDT by Salomon Santos
--- NOTE | 2021-02-16 11:07 | Electrocardiograph Report ---
[facility] Test Date: 2021-02-15 Test Time: 20:03:36 Pat Name: MATTHEW VELASQUEZ Department: Room: A482 1 Gender: F Applications Support Lead: CHAD : 1995 Requested By: SHAWN JOHNSON Order Number: [id number] Reading MD: Salomon Santos Measurements Intervals [place] Rate: 83 P: 44 TN: 125 QRS: 79 QRSD: 112 T: 74 QT: 452 QTc: 531 Interpretive Statements Sinus rhythm Abnrm T, consider ischemia, anterolateral lds ST elev, probable normal early repol pattern Prolonged QT interval Compared to ECG 02/15/2021 16:39:51 Rate is slower,otherwise no significant change noted. Electronically Signed On 02-16-2021 11:07:22 EDT by Salomon Santos
[2021-02-16] MEDS: SODIUM CHLORIDE 0.9% 1000 ML 1,000 ML IV SCH (12:31)
--- NOTE | 2021-02-16 15:20 | Progress Note ---
Assessment and Plan Assessment and plan: Patient is a 25-year-old female with no significant past medical history who presented with complaints of chest pain, shortness of breath, fever, and unintended weight loss (approximately >15 pounds) who was found to have a 5 cm cavitary lesion in the left lower lobe and 1.5 cm cavitary lesion in the right suprahilar region. #Cavitary lesion of lung -CT chest (02/15/2021 revealing 5 cm cavitary lesion in the left lower lobe and a 1.5 cm cavitary lesion in the right suprahilar region -Pulmonology consulted; pending recs -Concern for fungal infection (tuberculosis versus other local fungals)--> ordered AFB and culture -Unable to order additional labs such as histoplasma, coccidiomycosis, blastomycosis, IGRA versus T spot -Starting airborne precaution -Continue vancomycin and cefepime for possible bacterial etiology -Blood cultures drawn on admission; pending growth #Possible community-acquired pneumonia -Continue vancomycin and cefepime -Pending blood cultures -Ordering strep pneumonia, mycoplasma, and Legionella for further work-up #NSTEMI (type II)noncardiac -Downtrending troponins -Likely secondary to pulmonary abnormality #Elevated D-dimer -CTA negative for possible pulmonary embolism -Likely inflammatory marker from pulmonary infection #Low TSH -TSH 0.195, T4 1.09 -Continue to monitor. No need for intervention at this point in time #Hypomagnesemia -Repleted. Continue to monitor #DVT prophylaxis -Continue subcutaneous Lovenox 40 mg daily Disposition Plan: Continue medical management Total Time Spent with Patient (Minutes): 35 History Interval history: No acute events overnight. Hospitalist Physical - Constitutional Vitals: Temp Pulse Resp BP Pulse Ox 97.4 F L 71 18 165/98 100 02/16/21 04:57 02/16/21 04:57 02/16/21 14:44 02/16/21 07:20 02/16/21 14:44 General appearance: Present: no acute distress, well-nourished - EENT Eyes: Present: PERRL, EOM intact ENT: hearing intact, clear oral mucosa, dentition normal - Neck Neck: Present: supple, normal ROM - Respiratory Respiratory effort: normal - Cardiovascular Rhythm: regular Heart Sounds: Present: S1 & S2 - Extremities Extremities: no ischemia, pulses intact, pulses symmetrical, No edema, normal temperature, normal color Peripheral Pulses: within normal limits - Abdominal General gastrointestinal: soft, non-tender, non-distended, normal bowel sounds - Integumentary Integumentary: Present: clear, warm, dry - Psychiatric Psychiatric: appropriate mood/affect, intact judgment & insight, memory intact, cooperative - Neurologic Neurologic: CNII-XII intact, moves all extremities - Allied Health Allied health notes reviewed: nursing HEART Score - HEART Score Troponin: Troponin T < 0.010 ng/mL (0.00-0.029) 02/15/21 23:09 Results - Labs CBC & Chem 7: 02/16/21 04:54 02/16/21 04:54 Labs: Laboratory Last Values WBC 11.9 K/mm3 (4.5-11.0) H 02/16/21 04:54 RBC 3.68 M/mm3 (3.65-5.03) 02/16/21 04:54 Hgb 10.0 gm/dl (10.1-14.3) L 02/16/21 04:54 Hct 32.8 % (30.3-42.9) 02/16/21 04:54 MCV 89 fl (79-97) 02/16/21 04:54 MCH 27 pg (28-32) L 02/16/21 04:54 MCHC 31 % (30-34) 02/16/21 04:54 RDW 15.8 % (13.2-15.2) H 02/16/21 04:54 Plt Count 319 K/mm3 (140-440) 02/16/21 04:54 Lymph % (Auto) 8.6 % (13.4-35.0) L 02/16/21 04:54 [place] % (Auto) 11.2 % (0.0-7.3) H 02/16/21 04:54 Eos % (Auto) 0.0 % (0.0-4.3) 02/16/21 04:54 Baso % (Auto) 0.2 % (0.0-1.8) 02/16/21 04:54 Lymph # (Auto) 1.0 K/mm3 (1.2-5.4) L 02/16/21 04:54 [place] # (Auto) 1.3 K/mm3 (0.0-0.8) H 02/16/21 04:54 Eos # (Auto) 0.0 K/mm3 (0.0-0.4) 02/16/21 04:54 Baso # (Auto) 0.0 K/mm3 (0.0-0.1) 02/16/21 04:54 Add Manual Diff Complete 02/15/21 16:34 Total Counted 100 02/15/21 16:34 Seg Neutrophils % 80.0 % (40.0-70.0) H 02/16/21 04:54 Seg Neuts % (Manual) 92.0 % (40.0-70.0) H 02/15/21 16:34 Lymphocytes % (Manual) 5.0 % (13.4-35.0) L 02/15/21 16:34 Monocytes % (Manual) 2.0 % (0.0-7.3) 02/15/21 16:34 Eosinophils % (Manual) 1.0 % (0.0-4.3) 02/15/21 16:34 Nucleated RBC % Not Reportable 02/15/21 16:34 Seg Neutrophils # 9.5 K/mm3 (1.8-7.7) H 02/16/21 04:54 Seg Neutrophils # Man 7.8 K/mm3 (1.8-7.7) H 02/15/21 16:34 Band Neutrophils # 0.0 K/mm3 02/15/21 16:34 Lymphocytes # (Manual) 0.4 K/mm3 (1.2-5.4) L 02/15/21 16:34 Abs React Lymphs (Man) 0.0 K/mm3 02/15/21 16:34 Monocytes # (Manual) 0.2 K/mm3 (0.0-0.8) 02/15/21 16:34 Eosinophils # (Manual) 0.1 K/mm3 (0.0-0.4) 02/15/21 16:34 Basophils # (Manual) 0.0 K/mm3 (0.0-0.1) 02/15/21 16:34 Metamyelocytes # 0.0 K/mm3 02/15/21 16:34 Myelocytes # 0.0 K/mm3 02/15/21 16:34 Promyelocytes # 0.0 K/mm3 02/15/21 16:34 Blast Cells # 0.0 K/mm3 02/15/21 16:34 WBC Morphology Not Reportable 02/15/21 16:34 Hypersegmented Neuts Not Reportable 02/15/21 16:34 Hyposegmented Neuts Not Reportable 02/15/21 16:34 Hypogranular Neuts Not Reportable 02/15/21 16:34 Smudge Cells Not Reportable 02/15/21 16:34 Toxic Granulation Not Reportable 02/15/21 16:34 Toxic Vacuolation Not Reportable 02/15/21 16:34 Dohle Bodies Not Reportable 02/15/21 16:34 Pelger-Huet Anomaly Not Reportable 02/15/21 16:34 Edy Rods Not Reportable 02/15/21 16:34 Platelet Estimate Consistent w auto 02/15/21 16:34 Clumped Platelets Not Reportable 02/15/21 16:34 Plt Clumps, EDTA Not Reportable 02/15/21 16:34 Large Platelets Not Reportable 02/15/21 16:34 Giant Platelets Not Reportable 02/15/21 16:34 Platelet Satelliting Not Reportable 02/15/21 16:34 Plt Morphology Comment Not Reportable 02/15/21 16:34 RBC Morphology Not Reportable 02/15/21 16:34 Dimorphic RBCs Not Reportable 02/15/21 16:34 Polychromasia Not Reportable 02/15/21 16:34 Hypochromasia Not Reportable 02/15/21 16:34 Poikilocytosis Not Reportable 02/15/21 16:34 Anisocytosis 1+ 02/15/21 16:34 Microcytosis Not Reportable 02/15/21 16:34 Macrocytosis Not Reportable 02/15/21 16:34 Spherocytes Not Reportable 02/15/21 16:34 Pappenheimer Bodies Not Reportable 02/15/21 16:34 Sickle Cells Not Reportable 02/15/21 16:34 Target Cells Not Reportable 02/15/21 16:34 Tear Drop Cells Not Reportable 02/15/21 16:34 Ovalocytes Not Reportable 02/15/21 16:34 Helmet Cells Not Reportable 02/15/21 16:34 [place] Bodies Not Reportable 02/15/21 16:34 Adrian Rings Not Reportable 02/15/21 16:34 Virgilio Cells Not Reportable 02/15/21 16:34 Bite Cells Not Reportable 02/15/21 16:34 Crenated Cell Not Reportable 02/15/21 16:34 Elliptocytes Not Reportable 02/15/21 16:34 Acanthocytes (Spur) Not Reportable 02/15/21 16:34 Rouleaux Not Reportable 02/15/21 16:34 Hemoglobin C Crystals Not Reportable 02/15/21 16:34 Schistocytes Not Reportable 02/15/21 16:34 Malaria parasites Not Reportable 02/15/21 16:34 Boris Bodies Not Reportable 02/15/21 16:34 Hem Pathologist Commnt No 02/15/21 16:34 D-Dimer 419.23 ng/mlDDU (0-234) H 02/15/21 16:34 Sodium 140 mmol/L (137-145) 02/16/21 04:54 Potassium 4.5 mmol/L (3.6-5.0) 02/16/21 04:54 Chloride 108.5 mmol/L (98-107) H 02/16/21 04:54 Carbon Dioxide 22 mmol/L (22-30) 02/16/21 04:54 Anion Gap 14 mmol/L 02/16/21 04:54 BUN 8 mg/dL (7-17) 02/16/21 04:54 Creatinine 0.5 mg/dL (0.6-1.2) L 02/16/21 04:54 Estimated GFR > 60 ml/min 02/16/21 04:54 BUN/Creatinine Ratio 16 % 02/16/21 04:54 Glucose 117 mg/dL (65-100) H 02/16/21 04:54 Hemoglobin A1c 5.5 % (4-6) 02/15/21 23:09 Lactic Acid 1.20 mmol/L (0.7-2.0) 02/15/21 19:10 Calcium 8.8 mg/dL (8.4-10.2) 02/16/21 04:54 Magnesium 1.70 mg/dL (1.7-2.3) 02/16/21 10:37 Total Bilirubin 0.20 mg/dL (0.1-1.2) 02/16/21 04:54 AST 21 units/L (5-40) 02/16/21 04:54 ALT 46 units/L (7-56) 02/16/21 04:54 Alkaline Phosphatase 75 units/L (35-129) 02/16/21 04:54 Total Creatine Kinase 147 units/L (30-135) H 02/15/21 16:34 Troponin T < 0.010 ng/mL (0.00-0.029) 02/15/21 23:09 NT-Pro-B Natriuret Pep 27.57 pg/mL (0-450) 02/15/21 16:34 Total Protein 7.5 g/dL (6.3-8.2) 02/16/21 04:54 Albumin 3.2 g/dL (3.9-5) L 02/16/21 04:54 Albumin/Globulin Ratio 0.7 % 02/16/21 04:54 TSH 0.195 mlU/mL (0.270-4.200) L 02/15/21 16:34 Free T4 1.09 ng/dL (0.76-1.46) 02/16/21 10:37 HCG, Qual Negative (Negative) 02/15/21 16:34 Microbiology: Microbiology 02/15/21 19:10 Peripheral/Venous Blood Culture - Preliminary Culture in Progress 02/15/21 19:10 Peripheral/Venous Blood Culture - Preliminary Culture in Progress Leyva/IV: Voiding Method Toilet Active Medications - Current Medications Current Medications: Generic Name Dose Route Start Last Admin Trade Name Freq PRN Reason Stop Dose Admin Acetaminophen 650 mg 02/15/21 21:59 Acetaminophen 325 Mg Tab PO Q4H PRN Pain MILD(1-3)/Fever >100.5/TRIVEDI Al Hydrox/Mg Hydrox/Simethicone 30 ml 02/15/21 21:59 Alum-Mag Hydroxide-Simethicone [id number]/5ml Oral Liqd 30 Ml PO Q4H PRN Indigestion Albuterol 2.5 mg 02/15/21 21:59 Albuterol 2.5 Mg/3 Ml Nebu IH Q4HRT PRN Shortness Of Breath Enoxaparin Sodium 40 mg 02/16/21 22:00 Enoxaparin 40 Mg/0.4 Ml Inj SUB-Q QDAY@2200 KENDELL Protocol Famotidine 20 mg 02/15/21 22:00 02/16/21 10:26 Famotidine 20 Mg/2 Ml Inj IV 20 mg BID KENDELL Administration Vancomycin HCl 1 gm in 250 mls @ 166.667 mls/hr 02/16/21 09:00 02/16/21 10:55 Vancomycin/Ns 1 Gm/250 Ml IV 166.667 mls/hr Q8H KENDELL Administration Sodium Chloride 1,000 mls @ 42 mls/hr 02/15/21 22:00 02/16/21 12:31 Nacl 0.9% 1000 Ml IV 42 mls/hr DIRECT KENDELL Administration Cefepime HCl 2 gm in 100 mls @ 200 mls/hr 02/16/21 10:00 02/16/21 10:19 Cefepime/Ns 2 Gm/100 Ml IV 200 mls/hr Q12H KENDELL Administration Protocol Magnesium Hydroxide 30 ml 02/15/21 21:59 Magnesium Hydroxide (Mom) Oral Liqd Udc PO Q4H PRN Constipation Metoclopramide HCl 10 mg 02/15/21 21:59 Metoclopramide 10 Mg/2 Ml Inj IV Q6H PRN Nausea And Vomiting Morphine Sulfate 2 mg 02/15/21 21:59 Morphine 2 Mg/1 Ml Inj IV Q4H PRN Pain, Moderate (4-6) Morphine Sulfate 4 mg 02/15/21 21:59 Morphine 4 Mg/1 Ml Inj IV Q4H PRN Pain , Severe (7-10) Naloxone HCl 0.1 mg 02/15/21 21:59 Naloxone 0.4 Mg/1 Ml Inj IV Q2MIN PRN Res Rate </= 8 or 02 SAT < 92% Ondansetron HCl 4 mg 02/15/21 21:59 Ondansetron 4 Mg/2 Ml Inj IV Q8H PRN Nausea And Vomiting Oxycodone/Acetaminophen 1 tab 02/15/21 21:59 Oxycodone /Acetaminophen 5-325mg Tab PO Q6H PRN Pain, Moderate (4-6) Senna 8.6 mg 02/15/21 21:59 Sennosides 8.6 Mg Tab PO Q12HR PRN Constipation Sodium Chloride 10 ml 02/15/21 22:00 02/16/21 10:36 Sodium Chloride 0.9% 10 Ml Flush Syringe IV 10 ml BID KENDLEL Administration
--- NOTE | 2021-02-16 15:42 | Event Note ---
Date: 02/16/21 Full consult to follow. I did speak with SOUND ENGINEER [employer]IO [employer] from ED last night however I did not recommend admission. I asked if she was being admitted so that I could see if I could bronch her. Her CXR appears very similar from [address] is more revealing. There does appear to be some tree-in bud opacities with these cavitary lesions. I do not know her risk for TB. Based off what SOUND ENGINEER [employer] told me via phone last night, as stated, I was concerned about staph which is why I recommended vanc therapy. If she is not able to produce sputum bronch is warranted. Would not disagree with isolation as I told SOUND ENGINEER [employer] last night. However, if there is concern for TB I need to check with them. In the meantime suggest the following: obtain sputum cultures for respiratory culture, and AFB culture and smears If not able to produce sputum suggest ordering induced sputum check procalcitonin COntinue IV abx therapy Check HIV
--- NOTE | 2021-02-16 16:04 | Event Note ---
Date: 02/16/21 Bronch set for Sunday at 1400. please make patient NPO after midnight tomorrow night ( night) for procedure on Sunday Please obtain coags Sunday am
[2021-02-16] MEDS: ENOXAPARIN 40 MG/0.4 ML INJ SUB-Q SCH (22:42)
[2021-02-17] MEDS: VANCOMYCIN/NS 1 GM/250 ML 1 GM/250 ML BAG IV SCH ×3 (01:22→17:20)
[2021-02-17] MEDS: SODIUM CHLORIDE 0.9% 1000 ML 1,000 ML IV SCH (01:32)
[2021-02-17 05:55] LABS: Basophils # (Auto) 0.1 K/mm3 (0.0-0.1); Basophils % (Auto) 0.6 % (0.0-1.8); Eosinophils # (Auto) 0.1 K/mm3 (0.0-0.4); Eosinophils % (Auto) 0.8 % (0.0-4.3); Hematocrit 29.5 % (30.3-42.9); Hemoglobin 9.5 gm/dl (10.1-14.3); Lymphocytes # (Auto) 2.2 K/mm3 (1.2-5.4); Lymphocytes % (Auto) 19.2 % (13.4-35.0); Mean Corpuscular HGB Conc 32 % (30-34); Mean Corpuscular Volume 89 fl (79-97); Monocytes # (Auto) 1.3 K/mm3 (0.0-0.8); Platelet Count 314 K/mm3 (140-440); Red Cell Distribution Width 15.8 % (13.2-15.2)
[2021-02-17 06:02] LABS: Blood Urea Nitrogen 11 mg/dL (7-17); Calcium 8.3 mg/dL (8.4-10.2); Hemolysis Index 0
[2021-02-17 06:28] LABS: BUN/Creatinine Ratio 22
[2021-02-17] MEDS: FAMOTIDINE 20 MG/2 ML INJ IV SCH ×2 (09:01→21:49)
[2021-02-17] MEDS ORDERED: CALCIUM GLUCONATE 1,000 MG in SODIUM CHLORIDE 0.9% 100 ML IV ONE (09:30)
[2021-02-17] MEDS ORDERED: MAGNESIUM SULFATE 1 GM in SODIUM CHLORIDE 0.9% 50 ML IV ONE (09:30)
[2021-02-17] MEDS: CEFEPIME/NS 2 GM/100 ML 2 GM/100 ML BAG IV SCH ×2 (10:35→21:49)
--- NOTE | 2021-02-17 12:24 | Consultation ---
History of Present Illness Consult date: 02/17/21 Reason for consult: abnormal CXR/CT History of present illness: 25 y/o female, seen earlier this month and diagnosed with pneumonia based on CXR with complaints of cough and shortness of breath presented back to ED after completion of abx therapy and no improvement in symptoms. CT scan shows multiple cavitary lesions on the left. No lymphadenopathy. No effusion, no emphysema. Patient not requiring oxygen therapy. She denies any recent c ontacts or exposures to TB and no risk factors for HIV. She was incarcerated as a teen but none since then. She does smoke cigarettes and occasional marijuana. Remainder is negative. Past History Past Medical History: COPD Past Surgical History: No surgical history Social history: smoking, full code. denies: prescription drug abuse, IV drug use Family history: no significant family history Medications and Allergies Allergies Allergy/AdvReac Type Severity Reaction Status Date / Time No Known Allergies Allergy Verified 02/15/21 18:22 Home Medications Medication Instructions Recorded Confirmed Last Taken Type Albuterol Mdi (or & Nicu Only) 2 puff IH QID PRN #8.5 gram 02/02/21 02/15/21 Un known Rx [ProAir HFA Inhaler] Tylenol 500 mg PO Q6H PRN 02/15/21 02/15/21 Unknown History Active Meds: Active Medications Acetaminophen (Acetaminophen 325 Mg Tab) 650 mg PO Q4H PRN PRN Reason: Pain MILD(1-3)/Fever >100.5/TRIVEDI Al Hydrox/Mg Hydrox/Simethicone (Alum-Mag Hydroxide-Simethicone [phone]/5ml Oral Liqd 30 Ml) 30 ml PO Q4H PRN PRN Reason: Indigestion Albuterol (Albuterol 2.5 Mg/3 Ml Nebu) 2.5 mg IH Q4HRT PRN PRN Reason: Shortness Of Breath Enoxaparin Sodium (Enoxaparin 40 Mg/0.4 Ml Inj) 40 mg SUB-Q QDAY@2200 KENDELL; Protocol Last Admin: 02/16/21 22:42 Dose: 40 mg Documented by: Famotidine (Famotidine 20 Mg/2 Ml Inj) 20 mg IV BID [facility] Last Admin: 02/17/21 09:01 Dose: 20 mg Documented by: Vancomycin HCl (Vancomycin/Ns 1 Gm/250 Ml) 1 gm in 250 mls @ 166.667 mls/hr IV Q8H [facility] Last Admin: 02/17/21 08:59 Dose: 166.667 mls/hr Documented by: Sodium Chloride (Nacl 0.9% 1000 Ml) 1,000 mls @ 42 mls/hr IV DIRECT KENDELL Last Admin: 02/17/21 01:32 Dose: 42 mls/hr Documented by: Cefepime HCl (Cefepime/Ns 2 Gm/100 Ml) 2 gm in 100 mls @ 200 mls/hr IV Q12H [facility]; Protocol Last Admin: 02/17/21 10:35 Dose: 200 mls/hr Documented by: Magnesium Hydroxide (Magnesium Hydroxide (Mom) Oral Liqd Udc) 30 ml PO Q4H PRN PRN Reason: Constipation Metoclopramide HCl (Metoclopramide 10 Mg/2 Ml Inj) 10 mg IV Q6H PRN PRN Reason: Nausea And Vomiting Morphine Sulfate (Morphine 2 Mg/1 Ml Inj) 2 mg IV Q4H PRN PRN Reason: Pain, Moderate (4-6) Morphine Sulfate (Morphine 4 Mg/1 Ml Inj) 4 mg IV Q4H PRN PRN Reason: Pain , Severe (7-10) Naloxone HCl (Naloxone 0.4 Mg/1 Ml Inj) 0.1 mg IV Q2MIN PRN PRN Reason: Res Rate </= 8 or 02 SAT < 92% Ondansetron HCl (Ondansetron 4 Mg/2 Ml Inj) 4 mg IV Q8H PRN PRN Reason: Nausea And Vomiting Oxycodone/Acetaminophen (Oxycodone /Acetaminophen 5-325mg Tab) 1 tab PO Q6H PRN PRN Reason: Pain, Moderate (4-6) Senna (Sennosides 8.6 Mg Tab) 8.6 mg PO Q12HR PRN PRN Reason: Constipation Sodium Chloride (Sodium Chloride 0.9% 10 Ml Flush Syringe) 10 ml IV BID [facility] Last Admin: 02/17/21 11:35 Dose: Not Given Documented by: Physical Examination Vital signs: Vital Signs Temp Pulse Resp BP Pulse Ox 98.0 F 111 H 18 133/79 99 02/15/21 16:00 02/15/21 16:00 02/15/21 16:00 02/15/21 16:00 02/15/21 16:00 General appearance: no acute distress, alert Eyes: non-icteric ENT: oropharynx moist Neck: supple, no lymphadenopathy Effort: normal Ascultation: Bilateral: clear Percussion: Bilateral: not dull Tactile fremitus: Bilateral: normal Cardiovascular: regular rate and rhythm Gastrointestinal: normoactive bowel sounds, non-distended Extremities: no cyanosis Musculoskeletal: no deformities normal mental status, non-focal exam mood appropriate, affect normal Results - Laboratory Findings CBC and BMP: 02/17/21 04:31 02/17/21 04:31 PT/INR, D-dimer D-Dimer 419.23 ng/mlDDU (0-234) H 02/15/21 16:34 Abnormal lab findings: Abnormal Labs 02/15/21 02/15/21 02/15/21 16:34 16:34 16:34 WBC RBC Hgb Hct MCH RDW 15.5 H Lymph % (Auto) Stephens % (Auto) Lymph # (Auto) Stephens # (Auto) Seg Neutrophils % Seg Neuts % (Manual) 92.0 H Lymphocytes % (Manual) 5.0 L Seg Neutrophils # Seg Neutrophils # Man 7.8 H Lymphocytes # (Manual) 0.4 L D-Dimer 419.23 H Potassium Chloride Creatinine Glucose 150 H Calcium Magnesium 1.40 L Total Creatine Kinase 147 H Troponin T 0.058 H Albumin 3.3 L TSH 02/15/21 02/16/21 02/16/21 16:34 04:54 04:54 WBC 11.9 H RBC Hgb 10.0 L Hct MCH 27 L RDW 15.8 H Lymph % (Auto) 8.6 L Stephens % (Auto) 11.2 H Lymph # (Auto) 1.0 L Stephens # (Auto) 1.3 H Seg Neutrophils % 80.0 H Seg Neuts % (Manual) Lymphocytes % (Manual) Seg Neutrophils # 9.5 H Seg Neutrophils # Man Lymphocytes # (Manual) D-Dimer Potassium Chloride 108.5 H Creatinine 0.5 L Glucose 117 H Calcium Magnesium Total Creatine Kinase Troponin T Albumin 3.2 L TSH 0.195 L 02/17/21 02/17/21 04:31 04:31 WBC 11.7 H RBC 3.30 L Hgb 9.5 L Hct 29.5 L MCH RDW 15.8 H Lymph % (Auto) Stephens % (Auto) 11.0 H Lymph # (Auto) Stephens # (Auto) 1.3 H Seg Neutrophils % Seg Neuts % (Manual) Lymphocytes % (Manual) Seg Neutrophils # 8.0 H Seg Neutrophils # Man Lymphocytes # (Manual) D-Dimer Potassium 3.5 L D Chloride 107.2 H Creatinine 0.5 L Glucose Calcium 8.3 L Magnesium 1.30 L Total Creatine Kinase Troponin T Albumin TSH - Diagnostic Findings Chest x-ray: image reviewed CT scan - chest: image reviewed Assessment and Plan 25 y/o female with abnormal CXR 1. Needs bronch and has agreed to it 2. Will send for everything.
--- NOTE | 2021-02-17 14:10 | Progress Note ---
Assessment and Plan Assessment and plan: Patient is a 25-year-old female with no significant past medical history who presented with complaints of chest pain, shortness of breath, fever, and unintended weight loss (approximately >15 pounds) who was found to have a 5 cm cavitary lesion in the left lower lobe and 1.5 cm cavitary lesion in the right suprahilar region. #Cavitary lesion of lung -CT chest (02/15/2021 revealing 5 cm cavitary lesion in the left lower lobe and a 1.5 cm cavitary lesion in the right suprahilar region -Pulmonology consulted; appreciate recs -Pending bronchoscopy in morning. N.p.o. at midnight. Coags ordered -Concern for fungal infection (tuberculosis versus other local fungals)--> ordered AFB and culture, sputum culture and Gram stain -Unable to order additional labs such as histoplasma, coccidiomycosis, blastomycosis, IGRA versus T spot -Continue airborne precaution -Continue vancomycin and cefepime for possible bacterial etiology -Blood cultures drawn on admission; NGTD x1 #Possible community-acquired pneumonia -Continue vancomycin and cefepime -Pending blood cultures; NGTD x1 -Pending strep pneumonia, mycoplasma, and Legionella for further work-up #NSTEMI (type II)noncardiac -Downtrending troponins -Likely secondary to pulmonary abnormality #Elevated D-dimer -CTA negative for possible pulmonary embolism -Likely inflammatory marker from pulmonary infection #Low TSH -TSH 0.195, T4 1.09 -Continue to monitor. No need for intervention at this point in time #Hypomagnesemia -Repleted. Continue to monitor #DVT prophylaxis -Continue subcutaneous Lovenox 40 mg daily Disposition Plan: Pending bronchoscopy in the morning Total Time Spent with Patient (Minutes): 30 History Interval history: No acute events over night. The patient denies fevers, chills, nausea, vomiting, abdominal pain, chest pain/pressure, shortness of breath, urinary symptoms, weakness, or confusion. Hospitalist Physical - Constitutional Vitals: Temp Pulse Resp BP Pulse Ox 98.6 F 75 16 110/64 100 02/17/21 12:06 02/17/21 12:06 02/17/21 12:06 02/17/21 12:06 02/17/21 12:06 General appearance: Present: no acute distress, well-nourished - EENT Eyes: Present: PERRL, EOM intact ENT: hearing intact, clear oral mucosa, dentition normal - Neck Neck: Present: supple, normal ROM - Respiratory Respiratory effort: normal - Cardiovascular Rhythm: regular Heart Sounds: Present: S1 & S2 - Extremities Extremities: no ischemia, pulses intact, pulses symmetrical, No edema, normal temperature, normal color Peripheral Pulses: within normal limits - Abdominal General gastrointestinal: soft, non-tender, non-distended, normal bowel sounds - Integumentary Integumentary: Present: clear, warm, dry - Psychiatric Psychiatric: appropriate mood/affect, intact judgment & insight, memory intact, cooperative - Neurologic Neurologic: CNII-XII intact, moves all extremities - Allied Health Allied health notes reviewed: nursing HEART Score - HEART Score Troponin: Troponin T < 0.010 ng/mL (0.00-0.029) 02/15/21 23:09 Results - Labs CBC & Chem 7: 02/17/21 04:31 02/17/21 04:31 Labs: Laboratory Last Values WBC 11.7 K/mm3 (4.5-11.0) H 02/17/21 04:31 RBC 3.30 M/mm3 (3.65-5.03) L 02/17/21 04:31 Hgb 9.5 gm/dl (10.1-14.3) L 02/17/21 04:31 Hct 29.5 % (30.3-42.9) L 02/17/21 04:31 MCV 89 fl (79-97) 02/17/21 04:31 MCH 29 pg (28-32) 02/17/21 04:31 MCHC 32 % (30-34) 02/17/21 04:31 RDW 15.8 % (13.2-15.2) H 02/17/21 04:31 Plt Count 314 K/mm3 (140-440) 02/17/21 04:31 Lymph % (Auto) 19.2 % (13.4-35.0) 02/17/21 04:31 [place] % (Auto) 11.0 % (0.0-7.3) H 02/17/21 04:31 Eos % (Auto) 0.8 % (0.0-4.3) 02/17/21 04:31 Baso % (Auto) 0.6 % (0.0-1.8) 02/17/21 04:31 Lymph # (Auto) 2.2 K/mm3 (1.2-5.4) 02/17/21 04:31 [place] # (Auto) 1.3 K/mm3 (0.0-0.8) H 02/17/21 04:31 Eos # (Auto) 0.1 K/mm3 (0.0-0.4) 02/17/21 04:31 Baso # (Auto) 0.1 K/mm3 (0.0-0.1) 02/17/21 04:31 Add Manual Diff Complete 02/15/21 16:34 Total Counted 100 02/15/21 16:34 Seg Neutrophils % 68.4 % (40.0-70.0) 02/17/21 04:31 Seg Neuts % (Manual) 92.0 % (40.0-70.0) H 02/15/21 16:34 Lymphocytes % (Manual) 5.0 % (13.4-35.0) L 02/15/21 16:34 Monocytes % (Manual) 2.0 % (0.0-7.3) 02/15/21 16:34 Eosinophils % (Manual) 1.0 % (0.0-4.3) 02/15/21 16:34 Nucleated RBC % Not Reportable 02/15/21 16:34 Seg Neutrophils # 8.0 K/mm3 (1.8-7.7) H 02/17/21 04:31 Seg Neutrophils # Man 7.8 K/mm3 (1.8-7.7) H 02/15/21 16:34 Band Neutrophils # 0.0 K/mm3 02/15/21 16:34 Lymphocytes # (Manual) 0.4 K/mm3 (1.2-5.4) L 02/15/21 16:34 Abs React Lymphs (Man) 0.0 K/mm3 02/15/21 16:34 Monocytes # (Manual) 0.2 K/mm3 (0.0-0.8) 02/15/21 16:34 Eosinophils # (Manual) 0.1 K/mm3 (0.0-0.4) 02/15/21 16:34 Basophils # (Manual) 0.0 K/mm3 (0.0-0.1) 02/15/21 16:34 Metamyelocytes # 0.0 K/mm3 02/15/21 16:34 Myelocytes # 0.0 K/mm3 02/15/21 16:34 Promyelocytes # 0.0 K/mm3 02/15/21 16:34 Blast Cells # 0.0 K/mm3 02/15/21 16:34 WBC Morphology Not Reportable 02/15/21 16:34 Hypersegmented Neuts Not Reportable 02/15/21 16:34 Hyposegmented Neuts Not Reportable 02/15/21 16:34 Hypogranular Neuts Not Reportable 02/15/21 16:34 Smudge Cells Not Reportable 02/15/21 16:34 Toxic Granulation Not Reportable 02/15/21 16:34 Toxic Vacuolation Not Reportable 02/15/21 16:34 Dohle Bodies Not Reportable 02/15/21 16:34 Pelger-Huet Anomaly Not Reportable 02/15/21 16:34 Edy Rods Not Reportable 02/15/21 16:34 Platelet Estimate Consistent w auto 02/15/21 16:34 Clumped Platelets Not Reportable 02/15/21 16:34 Plt Clumps, EDTA Not Reportable 02/15/21 16:34 Large Platelets Not Reportable 02/15/21 16:34 Giant Platelets Not Reportable 02/15/21 16:34 Platelet Satelliting Not Reportable 02/15/21 16:34 Plt Morphology Comment Not Reportable 02/15/21 16:34 RBC Morphology Not Reportable 02/15/21 16:34 Dimorphic RBCs Not Reportable 02/15/21 16:34 Polychromasia Not Reportable 02/15/21 16:34 Hypochromasia Not Reportable 02/15/21 16:34 Poikilocytosis Not Reportable 02/15/21 16:34 Anisocytosis 1+ 02/15/21 16:34 Microcytosis Not Reportable 02/15/21 16:34 Macrocytosis Not Reportable 02/15/21 16:34 Spherocytes Not Reportable 02/15/21 16:34 Pappenheimer Bodies Not Reportable 02/15/21 16:34 Sickle Cells Not Reportable 02/15/21 16:34 Target Cells Not Reportable 02/15/21 16:34 Tear Drop Cells Not Reportable 02/15/21 16:34 Ovalocytes Not Reportable 02/15/21 16:34 Helmet Cells Not Reportable 02/15/21 16:34 Berumen-Bransford Bodies Not Reportable 02/15/21 16:34 Belding Rings Not Reportable 02/15/21 16:34 [place]wood Cells Not Reportable 02/15/21 16:34 Bite Cells Not Reportable 02/15/21 16:34 Crenated Cell Not Reportable 02/15/21 16:34 Elliptocytes Not Reportable 02/15/21 16:34 Acanthocytes (Spur) Not Reportable 02/15/21 16:34 Rouleaux Not Reportable 02/15/21 16:34 Hemoglobin C Crystals Not Reportable 02/15/21 16:34 Schistocytes Not Reportable 02/15/21 16:34 Malaria parasites Not Reportable 02/15/21 16:34 Boris Bodies Not Reportable 02/15/21 16:34 Hem Pathologist Commnt No 02/15/21 16:34 D-Dimer 419.23 ng/mlDDU (0-234) H 02/15/21 16:34 Sodium 139 mmol/L (137-145) 02/17/21 04:31 Potassium 3.5 mmol/L (3.6-5.0) L D 02/17/21 04:31 Chloride 107.2 mmol/L (98-107) H 02/17/21 04:31 Carbon Dioxide 22 mmol/L (22-30) 02/17/21 04:31 Anion Gap 13 mmol/L 02/17/21 04:31 BUN 11 mg/dL (7-17) 02/17/21 04:31 Creatinine 0.5 mg/dL (0.6-1.2) L 02/17/21 04:31 Estimated GFR > 60 ml/min 02/17/21 04:31 BUN/Creatinine Ratio 22 % 02/17/21 04:31 Glucose 90 mg/dL (65-100) 02/17/21 04:31 Hemoglobin A1c 5.5 % (4-6) 02/15/21 23:09 Lactic Acid 1.20 mmol/L (0.7-2.0) 02/15/21 19:10 Calcium 8.3 mg/dL (8.4-10.2) L 02/17/21 04:31 Phosphorus 3.10 mg/dL (2.5-4.5) 02/17/21 04:31 Magnesium 1.30 mg/dL (1.7-2.3) L 02/17/21 04:31 Total Bilirubin 0.20 mg/dL (0.1-1.2) 02/16/21 04:54 AST 21 units/L (5-40) 02/16/21 04:54 ALT 46 units/L (7-56) 02/16/21 04:54 Alkaline Phosphatase 75 units/L (35-129) 02/16/21 04:54 Total Creatine Kinase 147 units/L (30-135) H 02/15/21 16:34 Troponin T < 0.010 ng/mL (0.00-0.029) 02/15/21 23:09 NT-Pro-B Natriuret Pep 27.57 pg/mL (0-450) 02/15/21 16:34 Total Protein 7.5 g/dL (6.3-8.2) 02/16/21 04:54 Albumin 3.2 g/dL (3.9-5) L 02/16/21 04:54 Albumin/Globulin Ratio 0.7 % 02/16/21 04:54 TSH 0.195 mlU/mL (0.270-4.200) L 02/15/21 16:34 Free T4 1.09 ng/dL (0.76-1.46) 02/16/21 10:37 HCG, Qual Negative (Negative) 02/15/21 16:34 HIV 1&2 Antibody Rapid Non react (Non React) 02/16/21 10:37 HIV P24 Antigen Non react (Non React) 02/16/21 10:37 Microbiology: Microbiology 02/15/21 19:10 Peripheral/Venous Blood Culture - Preliminary NO GROWTH AFTER 24 HOURS 02/15/21 19:10 Peripheral/Venous Blood Culture - Preliminary NO GROWTH AFTER 24 HOURS Leyva/IV: Voiding Method Toilet Active Medications - Current Medications Current Medications: Generic Name Dose Route Start Last Admin Trade Name Freq PRN Reason Stop Dose Admin Acetaminophen 650 mg 02/15/21 21:59 Acetaminophen 325 Mg Tab PO Q4H PRN Pain MILD(1-3)/Fever >100.5/TRIVEDI Al Hydrox/Mg Hydrox/Simethicone 30 ml 10/19/21 21:59 Alum-Mag Hydroxide-Simethicone [id number]/5ml Oral Liqd 30 Ml PO Q4H PRN Indigestion Albuterol 2.5 mg 02/15/21 21:59 Albuterol 2.5 Mg/3 Ml Nebu IH Q4HRT PRN Shortness Of Breath Benzocaine 2 spray 02/18/21 07:00 Benzocaine 20% [place] 0.5 Ml Unit Dose MM 02/18/21 23:59 PREOP NR Enoxaparin Sodium 40 mg 02/16/21 22:00 02/16/21 22:42 Enoxaparin 40 Mg/0.4 Ml Inj SUB-Q 40 mg QDAY@2200 KENDELL Administration Protocol Famotidine 20 mg 02/15/21 22:00 02/17/21 09:01 Famotidine 20 Mg/2 Ml Inj IV 20 mg BID KENDELL Administration Vancomycin HCl 1 gm in 250 mls @ 166.667 mls/hr 02/16/21 09:00 02/17/21 08:59 Vancomycin/Ns 1 Gm/250 Ml IV 166.667 mls/hr Q8H KENDELL Administration Sodium Chloride 1,000 mls @ 42 mls/hr 02/15/21 22:00 02/17/21 01:32 Nacl 0.9% 1000 Ml IV 42 mls/hr DIRECT KENDELL Administration Cefepime HCl 2 gm in 100 mls @ 200 mls/hr 02/16/21 10:00 02/17/21 10:35 Cefepime/Ns 2 Gm/100 Ml IV 200 mls/hr Q12H KENDELL Administration Protocol Sodium Chloride 1,000 mls @ 50 mls/hr 02/18/21 07:00 Nacl 0.9% 1000 Ml IV DIRECT KENDELL Lidocaine 20 ml 02/18/21 07:00 Lidocaine (2%) 20 Mg/1 Ml Vial 20 Ml Mdv INFILTRATI 02/18/21 07:01 ONCE ONE Lidocaine HCl 20 ml 02/18/21 07:00 Lidocaine Viscous 2% 15 Ml Oral Liqd MM 02/18/21 23:59 PREOP NR Magnesium Hydroxide 30 ml 02/15/21 21:59 Magnesium Hydroxide (Mom) Oral Liqd Udc PO Q4H PRN Constipation Metoclopramide HCl 10 mg 02/15/21 21:59 Metoclopramide 10 Mg/2 Ml Inj IV Q6H PRN Nausea And Vomiting Morphine Sulfate 2 mg 02/15/21 21:59 Morphine 2 Mg/1 Ml Inj IV Q4H PRN Pain, Moderate (4-6) Morphine Sulfate 4 mg 02/15/21 21:59 Morphine 4 Mg/1 Ml Inj IV Q4H PRN Pain , Severe (7-10) Naloxone HCl 0.1 mg 02/15/21 21:59 Naloxone 0.4 Mg/1 Ml Inj IV Q2MIN PRN Res Rate </= 8 or 02 SAT < 92% Ondansetron HCl 4 mg 02/15/21 21:59 Ondansetron 4 Mg/2 Ml Inj IV Q8H PRN Nausea And Vomiting Oxycodone/Acetaminophen 1 tab 02/15/21 21:59 Oxycodone /Acetaminophen 5-325mg Tab PO Q6H PRN Pain, Moderate (4-6) Senna 8.6 mg 02/15/21 21:59 Sennosides 8.6 Mg Tab PO Q12HR PRN Constipation Sodium Chloride 10 ml 02/15/21 22:00 02/17/21 11:35 Sodium Chloride 0.9% 10 Ml Flush Syringe IV Not Given BID KENDELL
[2021-02-17] MEDS: ENOXAPARIN 40 MG/0.4 ML INJ SUB-Q SCH (21:50)
[2021-02-18] MEDS: VANCOMYCIN/NS 1 GM/250 ML 1 GM/250 ML BAG IV SCH ×2 (01:22→10:46)
[2021-02-18] MEDS: SODIUM CHLORIDE 0.9% 1000 ML 1,000 ML IV SCH (01:29)
[2021-02-18 06:26] LABS: Hematocrit 30.4 % (30.3-42.9); Hemoglobin 9.9 gm/dl (10.1-14.3); Mean Corpuscular HGB Conc 33 % (30-34); Mean Corpuscular Volume 88 fl (79-97); Platelet Count 312 K/mm3 (140-440); Red Blood Count 3.45 M/mm3 (3.65-5.03); Red Cell Distribution Width 15.9 % (13.2-15.2)
[2021-02-18 06:36] LABS: INR 0.95 (0.87-1.13)
[2021-02-18 06:48] LABS: BUN/Creatinine Ratio 14; Blood Urea Nitrogen 7 mg/dL (7-17); Calcium 8.4 mg/dL (8.4-10.2); Hemolysis Index 1
[2021-02-18] MEDS ORDERED: SODIUM CHLORIDE 0.9% 1000 ML 1,000 ML IV SCH (07:00)
[2021-02-18] MEDS ORDERED: LIDOCAINE (2%) 20 MG/1 ML VIAL 20 ML MDV INFILTRATI ONE ×3 (07:00→14:33)
[2021-02-18] MEDS ORDERED: LIDOCAINE VISCOUS 2% 15 ML ORAL LIQD MM NR (07:00)
[2021-02-18] MEDS ORDERED: BENZOCAINE 20% TOP SPRAY 0.5 ML UNIT DOSE MM NR (07:00)
[2021-02-18] MEDS ORDERED: MAGNESIUM SULFATE 2 GM/50 ML BAG IV ONE (09:00)
[2021-02-18 10:33] LABS: Basophils # (Auto) 0.1 K/mm3 (0.0-0.1); Eosinophils # (Auto) 0.1 K/mm3 (0.0-0.4); Eosinophils % (Auto) 1.6 % (0.0-4.3); Monocytes # (Auto) 1.4 K/mm3 (0.0-0.8)
[2021-02-18] MEDS: CEFEPIME/NS 2 GM/100 ML 2 GM/100 ML BAG IV SCH (10:38)
[2021-02-18] MEDS: FAMOTIDINE 20 MG/2 ML INJ IV SCH ×2 (10:38→22:12)
--- NOTE | 2021-02-18 12:05 | Consultation ---
History of Present Illness - Reason for Consult Consult date: 02/18/21 Cavitary pneumonia Requesting physician: SHAWN JOHNSON - History of Present Illness The patient is a 25-year-old female with tobacco smoking, occasional marijuana use was admitted with cough and shortness of breath. She had originally presented to the emergency room on 02/01/2021, diagnosed with a pneumonia and discharged home with oral antibiotics. Return to the hospital with worsening symptoms, CT showed 5 cm cavitary lesion in the left lung apex with extensive infiltration throughout the left upper lobe. Infectious diseases was consulted. No international travel. Denies any hemoptysis. Weight loss of about 10 pounds over the last 1 month. Review of Systems: General: no fevers,chills or rigors HEENT: no new visual disturbance Respiratory: + cough, sputum, no hemoptysis or shortness of breath Cardiovascular: No chest pain, syncope Gastrointestinal: No nausea, vomiting or diarrhea Genitourinary: No dysuria or hematuria Musculoskeletal: No new or worsening neck pain or back pain Neurologic: No headaches, seizures Hematologic: No easy bruising or bleeding Endocrine: Weight loss of about 10 pounds over the last 1 month. Skin: negative for rash, jaundice Psychiatric: No suicidal or homicidal ideation Past History Past Medical History: COPD Past Surgical History: No surgical history Social history: smoking, full code. denies: prescription drug abuse, IV drug use Family history: no significant family history Medications and Allergies Allergies Allergy/AdvReac Type Severity Reaction Status Date / Time No Known Allergies Allergy Verified 02/15/21 18:22 Home Medications Medication Instructions Recorded Confirmed Last Taken Type Albuterol Mdi (or & Nicu Only) 2 puff IH QID PRN #8.5 gram 02/02/21 02/15/21 Unknown Rx [ProAir HFA Inhaler] Tylenol 500 mg PO Q6H PRN 02/15/21 02/15/21 Unknown History Active Meds: Active Medications Acetaminophen (Acetaminophen 325 Mg Tab) 650 mg PO Q4H PRN PRN Reason: Pain MILD(1-3)/Fever >100.5/TRIVEDI Al Hydrox/Mg Hydrox/Simethicone (Alum-Mag Hydroxide-Simethicone [id number]/5ml Oral Liqd 30 Ml) 30 ml PO Q4H PRN PRN Reason: Indigestion Albuterol (Albuterol 2.5 Mg/3 Ml Nebu) 2.5 mg IH Q4HRT PRN PRN Reason: Shortness Of Breath Benzocaine (Benzocaine 20% Top [place] 0.5 Ml Unit Dose) 2 spray MM PREOP NR Stop: 02/18/21 23:59 Enoxaparin Sodium (Enoxaparin 40 Mg/0.4 Ml Inj) 40 mg SUB-Q QDAY@2200 KENDELL; Protocol Last Admin: 02/17/21 21:50 Dose: 40 mg Documented by: Famotidine (Famotidine 20 Mg/2 Ml Inj) 20 mg IV BID [facility] Last Admin: 02/18/21 10:38 Dose: 20 mg Documented by: Vancomycin HCl (Vancomycin/Ns 1 Gm/250 Ml) 1 gm in 250 mls @ 166.667 mls/hr IV Q8H [facility] Last Admin: 02/18/21 10:46 Dose: 166.667 mls/hr Documented by: Sodium Chloride (Nacl 0.9% 1000 Ml) 1,000 mls @ 42 mls/hr IV DIRECT KENDELL Last Admin: 02/18/21 01:29 Dose: 42 mls/hr Documented by: Sodium Chloride (Nacl 0.9% 1000 Ml) 1,000 mls @ 50 mls/hr IV DIRECT KENDELL Lidocaine HCl (Lidocaine Viscous 2% 15 Ml Oral Liqd) 20 ml MM PREOP NR Stop: 02/18/21 23:59 Magnesium Hydroxide (Magnesium Hydroxide (Mom) Oral Liqd Udc) 30 ml PO Q4H PRN PRN Reason: Constipation Metoclopramide HCl (Metoclopramide 10 Mg/2 Ml Inj) 10 mg IV Q6H PRN PRN Reason: Nausea And Vomiting Morphine Sulfate (Morphine 2 Mg/1 Ml Inj) 2 mg IV Q4H PRN PRN Reason: Pain, Moderate (4-6) Morphine Sulfate (Morphine 4 Mg/1 Ml Inj) 4 mg IV Q4H PRN PRN Reason: Pain , Severe (7-10) Naloxone HCl (Naloxone 0.4 Mg/1 Ml Inj) 0.1 mg IV Q2MIN PRN PRN Reason: Res Rate </= 8 or 02 SAT < 92% Ondansetron HCl (Ondansetron 4 Mg/2 Ml Inj) 4 mg IV Q8H PRN PRN Reason: Nausea And Vomiting Oxycodone/Acetaminophen (Oxycodone /Acetaminophen 5-325mg Tab) 1 tab PO Q6H PRN PRN Reason: Pain, Moderate (4-6) Senna (Sennosides 8.6 Mg Tab) 8.6 mg PO Q12HR PRN PRN Reason: Constipation Sodium Chloride (Sodium Chloride 0.9% 10 Ml Flush Syringe) 10 ml IV BID KENDELL Last Admin: 02/18/21 10:38 Dose: 10 ml Documented by: Physical Examination - Physical Exam Narrative exam: Physical Exam: Constitutional: Alert, cooperative. No acute distress Head, Ears, Nose: Normocephalic, atraumatic. External ears, nose normal Eyes: Conjunctivae/corneas clear. No icterus. No ptosis. Neck: Supple, no meningeal signs Oral: dentition fair, no thrush Cardiovascular: S1, S2 + Respiratory: Good air entry, clear to auscultation bilaterally GI: Soft, non-tender; bowel sounds normal. No peritoneal signs Musculoskeletal: No pedal edema, no cyanosis. Skin: No rash or abscess Hem/Lymphatic: No palpable cervical or supraclavicular nodes. No lymphangitis Psych: Mood ok. Affect normal Neurological: Awake, alert, oriented. No gross abnormality - Constitutional Vitals: Vital Signs Temp Pulse Resp BP Pulse Ox 99.2 F 92 H 18 115/70 98 02/18/21 08:41 02/18/21 08:41 02/18/21 10:00 02/18/21 08:41 02/18/21 10:00 Temperature -Last 24 Hours Temperature 99.2 F Temperature 98.4 F Temperature 98.6 F Temperature 98.5 F Temperature 99.9 F Temperature 98.6 F Results - Labs CBC & Chem 7: 02/18/21 04:57 02/18/21 04:57 Labs: Abnormal lab results 02/18/21 02/18/21 Range/Units 04:57 04:57 RBC 3.45 L (3.65-5.03) M/mm3 Hgb 9.9 L (10.1-14.3) gm/dl RDW 15.9 H (13.2-15.2) % Richardson # (Auto) 1.4 H (0.0-0.8) K/mm3 Creatinine 0.5 L (0.6-1.2) mg/dL Magnesium 1.40 L (1.7-2.3) mg/dL - Imaging and Cardiology Chest x-ray: report reviewed, image reviewed CT scan - chest: report reviewed, image reviewed (cavitary lesion in JN and RUL) Assessment and Plan Cultures: 02/15/2021 blood culture: No growth 02/16/2021 sputum culture: Contaminated specimen with saliva 02/16/2021 HIV: Negative A/P: 25/F with: #Cavitary pneumonia, left upper lobe with large 5 cm cavitary lesion and right upper lobe with smaller 1.5 cm cavitary lesion. HIV negative. ?TB v/s NTM v/s fungal v/s bacterial. #Cachexia #Tobacco abuse, occasional marijuana use Recs: -TB QuantiFERON gold -Sputum AFB stain and culture x3 -Appreciate pulmonary evaluation and plan for bronchoscopy. Please send cultures for routine Gram stain and culture, AFB stains and culture, fungal stain and culture -empiric Unasyn + IV Vancomycin for now -MRSA nasal PCR ordered, if negative, stop vancomycin Goldie Mckinnon MD, FACP [facility] ([facility]) O: [phone] F: [phone]
--- NOTE | 2021-02-18 14:07 | Progress Note ---
Assessment and Plan Assessment and plan: Patient is a 25-year-old female with no significant past medical history who presented with complaints of chest pain, shortness of breath, fever, and unintended weight loss (approximately >15 pounds) who was found to have a 5 cm cavitary lesion in the left lower lobe and 1.5 cm cavitary lesion in the right suprahilar region. #Cavitary lesions of lung -CT chest (02/15/2021 revealing 5 cm cavitary lesion in the left lower lobe and a 1.5 cm cavitary lesion in the right suprahilar region -Pulmonology consulted; appreciate recs -Pending bronchoscopy today; labs ordered. -Concern for fungal infection (tuberculosis versus other local fungals)--> ordered AFB and culture, sputum culture and Gram stain -Pending TB QuantiFERON gold and sputum AFB stain and culture x3. -ID on board; appreciate recs -Continue airborne precaution -Discontinued cefepime. Continue IV vancomycin (started 02/16/2021) and starting empiric Unasyn for better coverage. If MRSA nasal PCR is negative, vancomycin can be discontinued. -Blood cultures drawn on admission; NGTD x2 #Possible community-acquired pneumonia -Continue vancomycin (started 02/16/2021) and Unasyn (started 02/18/2021). Cefepime discontinued () -Pending blood cultures; NGTD x2 -Pending strep pneumonia, mycoplasma, and Legionella for further work-up #NSTEMI (type II)noncardiac -Downtrending troponins -Likely secondary to pulmonary abnormality #Elevated D-dimer -CTA negative for possible pulmonary embolism -Likely inflammatory marker from pulmonary infection #Low TSH -TSH 0.195, T4 1.09 -Continue to monitor. No need for intervention at this point in time #Hypomagnesemia -Repleted. Continue to monitor #DVT prophylaxis -Continue subcutaneous Lovenox 40 mg daily #Discharge planning -Due to patient being hemodynamically stable, patient might be candidate for discharge home. Patient has younger children and would like to return home. Would counselor aide patient on need for close follow-up of labs in the outpatient setting with pulmonology. Disposition Plan: Pending bronchoscopy today Total Time Spent with Patient (Minutes): 25 History Interval history: No acute events overnight. Hospitalist Physical - Constitutional Vitals: Temp Pulse Resp BP Pulse Ox 98.2 F 86 16 120/73 98 02/18/21 12:38 02/18/21 12:38 02/18/21 12:38 02/18/21 12:38 02/18/21 12:38 General appearance: Present: no acute distress, well-nourished - EENT Eyes: Present: PERRL, EOM intact ENT: hearing intact, clear oral mucosa, dentition normal - Neck Neck: Present: supple, normal ROM - Respiratory Respiratory effort: normal - Cardiovascular Rhythm: regular Heart Sounds: Present: S1 & S2 - Extremities Extremities: no ischemia, pulses intact, pulses symmetrical, No edema, normal temperature, normal color Peripheral Pulses: within normal limits - Abdominal General gastrointestinal: soft, non-tender, non-distended, normal bowel sounds - Integumentary Integumentary: Present: clear, warm, dry - Psychiatric Psychiatric: appropriate mood/affect, intact judgment & insight, memory intact, cooperative - Neurologic Neurologic: CNII-XII intact, moves all extremities - Allied Health Allied health notes reviewed: nursing HEART Score - HEART Score Troponin: Troponin T < 0.010 ng/mL (0.00-0.029) 02/15/21 23:09 Results - Labs CBC & Chem 7: 02/18/21 04:57 02/18/21 04:57 Labs: Laboratory Last Values WBC 9.3 K/mm3 (4.5-11.0) 02/18/21 04:57 RBC 3.45 M/mm3 (3.65-5.03) L 02/18/21 04:57 Hgb 9.9 gm/dl (10.1-14.3) L 02/18/21 04:57 Hct 30.4 % (30.3-42.9) 02/18/21 04:57 MCV 88 fl (79-97) 02/18/21 04:57 MCH 29 pg (28-32) 02/18/21 04:57 MCHC 33 % (30-34) 02/18/21 04:57 RDW 15.9 % (13.2-15.2) H 02/18/21 04:57 Plt Count 312 K/mm3 (140-440) 02/18/21 04:57 Lymph % (Auto) 19.2 % (13.4-35.0) 02/17/21 04:31 Taney % (Auto) Caustic Loader 02/18/21 04:57 Eos % (Auto) 1.6 % (0.0-4.3) 02/18/21 04:57 Baso % (Auto) 0.6 % (0.0-1.8) 02/17/21 04:31 Lymph # (Auto) 2.2 K/mm3 (1.2-5.4) 02/17/21 04:31 Taney # (Auto) 1.4 K/mm3 (0.0-0.8) H 02/18/21 04:57 Eos # (Auto) 0.1 K/mm3 (0.0-0.4) 02/18/21 04:57 Baso # (Auto) 0.1 K/mm3 (0.0-0.1) 02/18/21 04:57 Add Manual Diff Complete 02/15/21 16:34 Total Counted 100 02/15/21 16:34 Seg Neutrophils % 53.7 % (40.0-70.0) 02/18/21 04:57 Seg Neuts % (Manual) 92.0 % (40.0-70.0) H 02/15/21 16:34 Lymphocytes % (Manual) 5.0 % (13.4-35.0) L 02/15/21 16:34 Monocytes % (Manual) 2.0 % (0.0-7.3) 02/15/21 16:34 Eosinophils % (Manual) 1.0 % (0.0-4.3) 02/15/21 16:34 Nucleated RBC % Not Reportable 02/15/21 16:34 Seg Neutrophils # 4.6 K/mm3 (1.8-7.7) 02/18/21 04:57 Seg Neutrophils # Man 7.8 K/mm3 (1.8-7.7) H 02/15/21 16:34 Band Neutrophils # 0.0 K/mm3 02/15/21 16:34 Lymphocytes # (Manual) 0.4 K/mm3 (1.2-5.4) L 02/15/21 16:34 Abs React Lymphs (Man) 0.0 K/mm3 02/15/21 16:34 Monocytes # (Manual) 0.2 K/mm3 (0.0-0.8) 02/15/21 16:34 Eosinophils # (Manual) 0.1 K/mm3 (0.0-0.4) 02/15/21 16:34 Basophils # (Manual) 0.0 K/mm3 (0.0-0.1) 02/15/21 16:34 Metamyelocytes # 0.0 K/mm3 02/15/21 16:34 Myelocytes # 0.0 K/mm3 02/15/21 16:34 Promyelocytes # 0.0 K/mm3 02/15/21 16:34 Blast Cells # 0.0 K/mm3 02/15/21 16:34 WBC Morphology Not Reportable 02/15/21 16:34 Hypersegmented Neuts Not Reportable 02/15/21 16:34 Hyposegmented Neuts Not Reportable 02/15/21 16:34 Hypogranular Neuts Not Reportable 02/15/21 16:34 Smudge Cells Not Reportable 02/15/21 16:34 Toxic Granulation Not Reportable 02/15/21 16:34 Toxic Vacuolation Not Reportable 02/15/21 16:34 Dohle Bodies Not Reportable 02/15/21 16:34 Pelger-Huet Anomaly Not Reportable 02/15/21 16:34 Edy Rods Not Reportable 02/15/21 16:34 Platelet Estimate Consistent w auto 02/15/21 16:34 Clumped Platelets Not Reportable 02/15/21 16:34 Plt Clumps, EDTA Not Reportable 02/15/21 16:34 Large Platelets Not Reportable 02/15/21 16:34 Giant Platelets Not Reportable 02/15/21 16:34 Platelet Satelliting Not Reportable 02/15/21 16:34 Plt Morphology Comment Not Reportable 02/15/21 16:34 RBC Morphology Not Reportable 02/15/21 16:34 Dimorphic RBCs Not Reportable 02/15/21 16:34 Polychromasia Not Reportable 02/15/21 16:34 Hypochromasia Not Reportable 02/15/21 16:34 Poikilocytosis Not Reportable 02/15/21 16:34 Anisocytosis 1+ 02/15/21 16:34 Microcytosis Not Reportable 02/15/21 16:34 Macrocytosis Not Reportable 02/15/21 16:34 Spherocytes Not Reportable 02/15/21 16:34 Pappenheimer Bodies Not Reportable 02/15/21 16:34 Sickle Cells Not Reportable 02/15/21 16:34 Target Cells Not Reportable 02/15/21 16:34 Tear Drop Cells Not Reportable 02/15/21 16:34 Ovalocytes Not Reportable 02/15/21 16:34 Helmet Cells Not Reportable 02/15/21 16:34 [place] Bodies Not Reportable 02/15/21 16:34 [place] Rings Not Reportable 02/15/21 16:34 Virgilio Cells Not Reportable 02/15/21 16:34 Bite Cells Not Reportable 02/15/21 16:34 Crenated Cell Not Reportable 02/15/21 16:34 Elliptocytes Not Reportable 02/15/21 16:34 Acanthocytes (Spur) Not Reportable 02/15/21 16:34 Rouleaux Not Reportable 02/15/21 16:34 Hemoglobin C Crystals Not Reportable 02/15/21 16:34 Schistocytes Not Reportable 02/15/21 16:34 Malaria parasites Not Reportable 02/15/21 16:34 Boris Bodies Not Reportable 02/15/21 16:34 Hem Pathologist Commnt No 02/15/21 16:34 PT 13.7 Sec. (12.2-14.9) 02/18/21 04:57 INR 0.95 (0.87-1.13) 02/18/21 04:57 D-Dimer 419.23 ng/mlDDU (0-234) H 02/15/21 16:34 Sodium 140 mmol/L (137-145) 02/18/21 04:57 Potassium 4.2 mmol/L (3.6-5.0) 02/18/21 04:57 Chloride 104.3 mmol/L (98-107) 02/18/21 04:57 Carbon Dioxide 23 mmol/L (22-30) 02/18/21 04:57 Anion Gap 17 mmol/L 02/18/21 04:57 BUN 7 mg/dL (7-17) 02/18/21 04:57 Creatinine 0.5 mg/dL (0.6-1.2) L 02/18/21 04:57 Estimated GFR > 60 ml/min 02/18/21 04:57 BUN/Creatinine Ratio 14 % 02/18/21 04:57 Glucose 74 mg/dL (65-100) 02/18/21 04:57 Hemoglobin A1c 5.5 % (4-6) 02/15/21 23:09 Lactic Acid 1.20 mmol/L (0.7-2.0) 02/15/21 19:10 Calcium 8.4 mg/dL (8.4-10.2) 02/18/21 04:57 Phosphorus 4.10 mg/dL (2.5-4.5) D 02/18/21 04:57 Magnesium 1.40 mg/dL (1.7-2.3) L 02/18/21 04:57 Total Bilirubin 0.20 mg/dL (0.1-1.2) 02/16/21 04:54 AST 21 units/L (5-40) 02/16/21 04:54 ALT 46 units/L (7-56) 02/16/21 04:54 Alkaline Phosphatase 75 units/L (35-129) 02/16/21 04:54 Total Creatine Kinase 147 units/L (30-135) H 02/15/21 16:34 Troponin T < 0.010 ng/mL (0.00-0.029) 02/15/21 23:09 NT-Pro-B Natriuret Pep 27.57 pg/mL (0-450) 02/15/21 16:34 Total Protein 7.5 g/dL (6.3-8.2) 02/16/21 04:54 Albumin 3.2 g/dL (3.9-5) L 02/16/21 04:54 Albumin/Globulin Ratio 0.7 % 02/16/21 04:54 TSH 0.195 mlU/mL (0.270-4.200) L 02/15/21 16:34 Free T4 1.09 ng/dL (0.76-1.46) 02/16/21 10:37 HCG, Qual Negative (Negative) 02/15/21 16:34 Vancomycin Trough 12.4 ug/mL (5.0-20.0) 02/18/21 08:56 HIV 1&2 Antibody Rapid Non react (Non React) 02/16/21 10:37 HIV P24 Antigen Non react (Non React) 02/16/21 10:37 Microbiology: Microbiology 02/15/21 19:10 Peripheral/Venous Blood Culture - Preliminary NO GROWTH AFTER 48 HOURS 02/15/21 19:10 Peripheral/Venous Blood Culture - Preliminary NO GROWTH AFTER 48 HOURS 02/16/21 08:00 Sputum - Expectorated Sputum Sputum Culture - Final Leyva/IV: Voiding Method Toilet Active Medications - Current Medications Current Medications: Generic Name Dose Route Start Last Admin Trade Name Freq PRN Reason Stop Dose Admin Acetaminophen 650 mg 02/15/21 21:59 Acetaminophen 325 Mg Tab PO Q4H PRN Pain MILD(1-3)/Fever >100.5/TRIVEDI Al Hydrox/Mg Hydrox/Simethicone 30 ml 02/15/21 21:59 Alum-Mag Hydroxide-Simethicone [phone]/5ml Oral Liqd 30 Ml PO Q4H PRN Indigestion Albuterol 2.5 mg 02/15/21 21:59 Albuterol 2.5 Mg/3 Ml Nebu IH Q4HRT PRN Shortness Of Breath Benzocaine 2 spray 02/18/21 07:00 Benzocaine 20% [place] 0.5 Ml Unit Dose MM 02/18/21 23:59 PREOP NR Enoxaparin Sodium 40 mg 02/16/21 22:00 02/17/21 21:50 Enoxaparin 40 Mg/0.4 Ml Inj SUB-Q 40 mg QDAY@2200 KENDELL Administration Protocol Famotidine 20 mg 02/15/21 22:00 02/18/21 10:38 Famotidine 20 Mg/2 Ml Inj IV 20 mg BID KENDELL Administration Vancomycin HCl 1 gm in 250 mls @ 166.667 mls/hr 02/16/21 09:00 02/18/21 10:46 Vancomycin/Ns 1 Gm/250 Ml IV 166.667 mls/hr Q8H KENDELL Administration Sodium Chloride 1,000 mls @ 42 mls/hr 02/15/21 22:00 02/18/21 01:29 Nacl 0.9% 1000 Ml IV 42 mls/hr DIRECT KENDELL Administration Sodium Chloride 1,000 mls @ 50 mls/hr 02/18/21 07:00 Nacl 0.9% 1000 Ml IV DIRECT KENDELL Ampicillin Sodium/Sulbactam Sodium 3 gm in 100 mls @ 200 mls/hr 02/18/21 13:00 Unasyn/Ns 3 Gm/100 Ml IV Q6H KENDELL Protocol Lidocaine HCl 20 ml 02/18/21 07:00 Lidocaine Viscous 2% 15 Ml Oral Liqd MM 02/18/21 23:59 PREOP NR Magnesium Hydroxide 30 ml 02/15/21 21:59 Magnesium Hydroxide (Mom) Oral Liqd Udc PO Q4H PRN Constipation Metoclopramide HCl 10 mg 02/15/21 21:59 Metoclopramide 10 Mg/2 Ml Inj IV Q6H PRN Nausea And Vomiting Morphine Sulfate 2 mg 02/15/21 21:59 Morphine 2 Mg/1 Ml Inj IV Q4H PRN Pain, Moderate (4-6) Morphine Sulfate 4 mg 02/15/21 21:59 Morphine 4 Mg/1 Ml Inj IV Q4H PRN Pain , Severe (7-10) Naloxone HCl 0.1 mg 02/15/21 21:59 Naloxone 0.4 Mg/1 Ml Inj IV Q2MIN PRN Res Rate </= 8 or 02 SAT < 92% Ondansetron HCl 4 mg 02/15/21 21:59 Ondansetron 4 Mg/2 Ml Inj IV Q8H PRN Nausea And Vomiting Oxycodone/Acetaminophen 1 tab 02/15/21 21:59 Oxycodone /Acetaminophen 5-325mg Tab PO Q6H PRN Pain, Moderate (4-6) Senna 8.6 mg 02/15/21 21:59 Sennosides 8.6 Mg Tab PO Q12HR PRN Constipation Sodium Chloride 10 ml 02/15/21 22:00 02/18/21 10:38 Sodium Chloride 0.9% 10 Ml Flush Syringe IV 10 ml BID KENDELL Administration
--- NOTE | 2021-02-18 14:12 | Anesthesia Day of Surgery ---
Anesthesia Day of Surgery - Day of Surgery Patient Examined: Yes Patient H&P Reviewed: Yes Patient is NPO: Yes
--- NOTE | 2021-02-18 14:15 | Anesthesia Consultation ---
Anesthesia Consult and Med Hx Date of service: 02/18/21 - Airway Anesthetic Teeth Evaluation: Good ROM Head & Neck: Adequate Mental/Hyoid Distance: Adequate Mallampati Class: Class II Intubation Access Assessment: Good - Pre-Operative Health Status ASA Pre-Surgery Classification: ASA3 Proposed Anesthetic Plan: General - Pulmonary Hx Smoking: Yes Hx Asthma: Yes COPD: No Hx Pneumonia: Yes - Other Systems Hx Substance Use: Yes (MJ) Hx Obesity: No
[2021-02-18] MEDS ORDERED: propofoL 200 MG/20 ML VIAL IV ONE ×2 (14:17→14:32)
[2021-02-18] MEDS ORDERED: LIDOCAINE MPF (2%) 20 MG/1 ML VIAL 5 ML ONE (14:20)
[2021-02-18] MEDS ORDERED: BENZOCAINE 20% TOP SPRAY 0.5 ML UNIT DOSE MM ONE (14:20)
[2021-02-18] MEDS ORDERED: LIDOCAINE VISCOUS 2% 15 ML ORAL LIQD MM ONE (14:20)
--- NOTE | 2021-02-18 14:52 | Procedure Note ---
Date of procedure: 02/18/21 Pre-op diagnosis: Cavitary Disease Post-op diagnosis: same Procedure: Bronchoscopy with Lavage After obtaining informed consent, patient taken to endo, placed supine and under MAC, scope passed through right nare without difficulty. Cords normal. Trachea normal. Thick white secretions seen bilaterally but no evidence of endobronchial disease. Washings were taken from the left upper lobe with good return of specimen. Patient tolerated procedure well with no complications. Anesthesia: MAC Surgeon: ANGELINE BOWERS Estimated blood loss: none Pathology: none Specimen disposition: to lab Condition: stable Disposition: floor
--- NOTE | 2021-02-18 14:53 | Event Note ---
Date: 02/18/21 Bronch complete. Please see full procedure note for details. Specimen collected and sent to lab. Patient anxious for discharge. stable on room air. pulm saldana no objection to discharge. Respiratory culture, MRSA PCR, AFB culture and smear, fungal culture as well as cytology sent.
--- NOTE | 2021-02-18 15:43 | Post Anesthesia Evaluation ---
- Post Anesthesia Evaluation Patient Participated: Yes Airway Patent: Yes Stable Respiratory Function: Yes Nausea/Vomiting: No Temp > 96.8F: Yes Pain Manageable: Yes Adequeate Hydration: Yes Anesthesia Complications: No Block Receding Appropriately: Not Applicable Patient on Ventilator: No
[2021-02-18] MEDS: AMPICILLIN/SULBACTA 3GM/100ML 3 GM/100 ML BAG IV SCH ×2 (16:16→22:11)
[2021-02-18 17:10] LABS: Platelet Estimate Consistent w Auto; Total Cells Counted 100
[2021-02-18] MEDS: ENOXAPARIN 40 MG/0.4 ML INJ SUB-Q SCH (22:11)
[2021-02-19] MEDS: AMPICILLIN/SULBACTA 3GM/100ML 3 GM/100 ML BAG IV SCH (00:39)
[2021-02-19] MEDS: VANCOMYCIN/NS 1 GM/250 ML 1 GM/250 ML BAG IV SCH (00:47)
[2021-02-19] MEDS ORDERED: FAMOTIDINE 20 MG TAB PO SCH (10:00)
[2021-02-19 11:12] VITALS: BP 125/77
--- NOTE | 2021-02-24 22:15 | Discharge Summary ---
Providers - Providers Date of Admission: 02/15/21 21:43 Date of discharge: 02/19/21 Attending physician: SHAWN JOHNSON MD 02/15/21 21:32 Consult to Physician [CONS] Stat Comment: GIOVANNA Myers spoke with Dr. Pacheco @ 2003 Consulting Provider: ANGELINE PACHECO Physician Instructions: Reason For Exam: cavitary lesions 02/18/21 11:18 Consult to Physician [CONS] Routine Comment: Consulting Provider: MARISOL HOLT Physician Instructions: Reason For Exam: cavitary lesion w/ concern for MRSA vs TB Primary care physician: POLYMER SCIENTIST Hospitalization Reason for admission: Cavitary lesion of lungs Condition: Fair Pertinent studies: Reviewed. Procedures: Bronchoscopy Hospital course: Patient is a 25-year-old female with no significant past medical history who presented with complaints of chest pain, shortness of breath, fever, and unintended weight loss (approximately >15 pounds) who was found to have a 5 cm cavitary lesion in the left lower lobe and 1.5 cm cavitary lesion in the right suprahilar region. The patient did not appear cachetic as listed in a change management consultant note.The patient was started on broad spectrum antibiotics due to concern for bacterial pneumonia, completing a 3-day course. The patient underwent bronchoscopy on 02/18/2021 by Pulmonology to obtain sputum samples. Infectious Disease was consulted to assist with antibiotic management. The patient remained hemodynamically stable and remained on room air. The patient was safely discharged home with follow up with Pulmonlogy. Disposition: 01 HOME / SELF CARE / HOMELESS Final Discharge Diagnosis (Prints w/discharge instructions): NSTEMI (type II); possible community acquired pneumonia; cavitary lesion of lungs Time spent for discharge: 35 minutes Core Measure Documentation - Palliative Care Palliative Care/ Comfort Measures: Not Applicable - Core Measures Any of the following diagnoses?: none - VTE Discharge Requirements Deep Vein Thrombosis/Pulmonary Embolism Present on Admission: No Has pt received <5 days of overlap therapy or INR<2.0: No (Not indicated) Anticoagulant overlap therapy prescribed at discharge: No Contraindication No Overlap Therapy order at DC: Not Indicated - Acute [place] Discharge Requirements Aspirin at discharge: No Reason for no aspirin on DC: Medical contraindication (Not indicated) MELANIA/ARB for LVSD if EF <40%: Not Applicable Reason for no MELANIA/ARB: Medical contraindication (Not indicated) Beta kusum at discharge: No Reason for no beta kusum on DC: Medical contraindication (Not indicated) Statin for LDL = or >100 mg/dl on DC: Not Applicable Reason for no statin on DC: Medical contraindication (Not indicated) - Heart Failure Discharge Requirements MELANIA/ARB for LVSD if EF <40%: Not Applicable Reason for no MELANIA/ARB: Medical contraindication (Not indicated) Beta kusum at discharge: No Reason for no beta kusum on DC: Medical contraindication (Not indicated) - Stroke Discharge Requirements Statin for LDL = or >70 mg/dl on DC: Not Applicable Reason for no statin on DC: Not Indicated Anticoag for atrial fib/atrial flutter: Not Applicable Reason for no anticoag for AF/F on DC: Not Indicated Antithrombotic for ischemic stroke: No Reason for no antithrombotic on DC: Not Indicated Exam - Constitutional Vitals: Temp Pulse Resp BP Pulse Ox 97.7 F 105 H 16 125/77 98 02/19/21 11:06 02/19/21 11:06 02/19/21 11:06 02/19/21 11:06 02/19/21 12:00 General appearance: Present: no acute distress, well-nourished - EENT Eyes: Present: PERRL, EOM intact ENT: hearing intact, clear oral mucosa, dentition normal - Neck Neck: Present: supple, normal ROM - Respiratory Respiratory effort: normal - Cardiovascular Rhythm: regular Heart Sounds: Present: S1 & S2 - Extremities Extremities: no ischemia, pulses intact, pulses symmetrical, No edema, normal temperature, normal color Peripheral Pulses: within normal limits - Abdominal General gastrointestinal: Present: soft, non-tender, non-distended, normal bowel sounds Female genitourinary: Present: deferred - Rectal Rectal Exam: deferred - Integumentary Integumentary: Present: clear, warm, dry - Musculoskeletal Musculoskeletal: strength equal bilaterally - Psychiatric Psychiatric: appropriate mood/affect, intact judgment & insight, memory intact, cooperative - Neurologic Neurologic: CNII-XII intact, moves all extremities - Allied Health Allied health notes reviewed: nursing Plan Care Plan Goals: Patient safely discharging home with close follow-up with pulmonology clinic in outpatient setting. Assessment: Patient was admitted and evaluated for multiple cavitary lesions in lungs. Pulmonology was consulted, and patient underwent bronchoscopy on 02/18/2021. Patient tolerated procedure well. Appropriate samples were obtained and labs were sent off. Follow up with: PRIMARY CARE, [Primary Care Provider] - 3-5 Days Forms: Discharge Signature Page
== END 2021-02-19 12:00 | disposition home or self-care (01) | DRG 166 ==
LOC: ED 15:49 → 3A 21:43 → 4A 22:07
PROVIDERS: ADMIT Hospitalist; ATTEND Student in an Organized Health Care Education/Training Program
PROC: 0B9G8ZX Drainage of Left Upper Lung Lobe, Via Natural or Artificial Opening Endoscopic, Diagnostic (ICD-10-PCS; principal; 2021-02-18)
DX: J18.9 Pneumonia, unspecified organism (principal); I21.4 Non-ST elevation (NSTEMI) myocardial infarction; Z20.822 Contact with and (suspected) exposure to COVID-19; E83.42 Hypomagnesemia; J44.0 Chronic obstructive pulmonary disease with (acute) lower respiratory infection; J98.4 Other disorders of lung; F17.200 Nicotine dependence, unspecified, uncomplicated
CPT/HCPCS: 36415; 71046; 71275; 80048; 80053; 80202; 82140; 82550; 83036; 83735; 83880; 84100; 84439; 84443; 84481; 84484; 84703; 85007; 85025; 85379; 85610; 86738; 87040; 87102; 87116; 87205; 87806; 88112; 88312; 93005; G0378; J0295; J0610; J0692; J1644; J1650; J2704; J3370; J3475; J7030; J7050; Q9967

== ENCOUNTER 2021-12-01 12:29 | Emergency (ER) | payer OTHER ==
[2021-12-01 13:14] VITALS: BP 135/83
--- NOTE | 2021-12-01 13:36 | Emergency Department Report ---
ED Female HPI - General Chief complaint: OB/Uterine Contractions Stated complaint: IUD PAIN Time Seen by Provider: 12/01/21 13:35 Source: patient Mode of arrival: Ambulatory Limitations: No Limitations - History of Present Illness Initial comments: Patient is a 26-year-old female that comes to the ER complaining that she thinks her IUD is out of place. She wants it removed. I have informed the patient that in the ER we do not remove or reposition IUDs. 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 Patient denies vaginal discharge, bleeding or abdominal pain. Denies back pain. Denies fever or chills. Improves with: none Worsens with: none Are you Now?: No Associated Symptoms: denies other symptoms - Related Data Sexually active: Yes Home Medications Medication Instructions Recorded Confirmed Last Taken Tylenol 500 mg PO Q6H PRN 02/15/21 02/15/21 Unknown Previous Rx's Medication Instructions Recorded Last Taken Type Albuterol Mdi (or & Nicu Only) 2 puff IH QID PRN #8.5 gram 02/02/21 Unknown Rx [ProAir HFA Inhaler] Allergies Allergy/AdvReac Type Severity Reaction Status Date / Time No Known Allergies Allergy Verified 02/15/21 18:22 ED Review of Systems ROS: Stated complaint: IUD PAIN Other details as noted in HPI Comment: All other systems reviewed and negative ED Past Medical Hx - Past Medical History Previous Medical History?: Yes Hx Asthma: Yes Hx COPD: No Additional medical history: bronchitis - Family History Family history: no significant - Social History Smoking Status: Never Smoker Substance Use Type: None - Medications Home Medications: Home Medications Medication Instructions Recorded Confirmed Last Taken Type Albuterol Mdi (or & Nicu Only) 2 puff IH QID PRN #8.5 gram 02/02/21 02/15/21 Unknown Rx [ProAir HFA Inhaler] Tylenol 500 mg PO Q6H PRN 02/15/21 02/15/21 Unknown History ED Physical Exam - General Limitations: No Limitations General appearance: alert, in no apparent distress - Head Head exam: Present: atraumatic, normocephalic - Eye Eye exam: Present: normal appearance - ENT ENT exam: Present: mucous membranes moist - Neck Neck exam: Present: normal inspection - Respiratory Respiratory exam: Present: normal lung sounds bilaterally. Absent: respiratory distress - Cardiovascular Cardiovascular Exam: Present: regular rate, normal rhythm, other (Heart rate 100 on exam). Absent: systolic murmur, diastolic murmur, rubs, gallop - GI/Abdominal GI/Abdominal exam: Present: soft, normal bowel sounds - Extremities Exam Extremities exam: Present: normal inspection - Back Exam Back exam: Present: normal inspection - Neurological Exam Neurological exam: Present: alert, oriented X3 - Psychiatric Psychiatric exam: Present: normal affect, normal mood - Skin Skin exam: Present: warm, dry, intact, normal color. Absent: rash ED Course Vital Signs 12/01/21 13:12 Temperature 100.2 F H Pulse Rate 129 H Respiratory 18 Rate Blood Pressure 135/83 [Right] O2 Sat by Pulse 99 Oximetry ED Medical Decision Making - Medical Decision Making Patient left after MSE prior to getting to the ER. Vital Signs 12/01/21 13:12 Temperature 100.2 F H Pulse Rate 129 H Respiratory 18 Rate Blood Pressure 135/83 [Right] O2 Sat by Pulse 99 Oximetry Critical care attestation.: If time is entered above; I have spent that time in minutes in the direct care of this critically ill patient, excluding procedure time. ED Disposition Clinical Impression: IUD complication Disposition: 07 LEFT WITHOUT BEING SEEN Is pt being admited?: No Does the pt Need Aspirin: No Condition: Stable
== END 2021-12-02 09:00 | disposition left against medical advice (07) ==
LOC: ED 12:29
DX: T83.9XXA Unspecified complication of genitourinary prosthetic device, implant and graft, initial encounter (principal); J45.909 Unspecified asthma, uncomplicated; X58.XXXA Exposure to other specified factors, initial encounter
CPT/HCPCS: 99281